=== PATIENT | male | born 1960 | race Caucasian/White ===

== ENCOUNTER 2017-12-25 | Emergency (ER) | payer MEDICAID, OTHER | END 2017-12-25 13:58 | disposition home or self-care (01) | DX: S91.301A Unspecified open wound, right foot, initial encounter (principal) ==

== ENCOUNTER 2018-01-14 16:29 | Inpatient (IN) | payer MEDICAID ==
--- NOTE | 2018-01-14 16:50 | EDPHY ---
H & P Time Seen by Provider: 01/14/18 16:39 HPI/ROS: CHIEF COMPLAINT: Right leg swelling HISTORY OF PRESENT ILLNESS: Patient presents from [facility] for 2 weeks of right leg swelling and a wound on his right foot. He has a history of diabetes and 2 previous toe amputations. Patient has a wound and redness and swelling on his right foot which is severe. It is getting much worse over the past 48 hr. Not associated with trauma but does have fever and chills. It is painful. Symptoms moderate. REVIEW OF SYSTEMS: Eye: no change in vision ENT: no sore throat Cardiac: no chest pain or syncope Pulmonary: no cough or SOB Abdomen: No vomiting or abdominal pain, had diarrhea and Clostridium difficile 3 months ago. Musculoskeletal: Right leg swelling below the knee Skin: Redness and open sores on his right foot Neuro: no headache Constitutional: Fever and chills : no urinary symptoms A comprehensive 10 point review of systems is otherwise negative aside from elements mentioned in the history of present illness. PAST MEDICAL HISTORY: Includes diabetes, hypertension, hypercholesterolemia Admitted at [facility] from November 25 to December 13 of this year for diabetic foot ulcer discharged on doxycycline. Social history: [facility] patient General Appearance: Alert and conversant, cooperative. Eyes: No scleral icterus. ENT, Mouth: Normal mucous membranes. Respiratory: Normal respiratory effort, breath sounds equal, lungs are clear to auscultation. Cardiovascular: Regular rate and rhythm. Gastrointestinal: Abdomen is soft and non tender. Neurological: Alert, face symmetric, fluent speech, follows commands. Skin: Redness on the lateral surface of the right foot and over the 3 remaining toes. He has open wound on the plantar surface as well as 1 on the lateral surface. There is some tissue maceration. Another red patch over the anterior morris. Musculoskeletal: Right lower leg is 3+ pedal edema. Psychiatric: Not agitated. Emergency Department course/MDM: Patient presents with acute soft tissue swelling consistent with diabetic foot ulcer. Discussion with Dr. Shelton from Infectious Disease recommends vancomycin and ceftriaxone, the patient does say he have a penicillin allergy which includes shortness of breath and hives. 1832: Central line placed by myself due to inability to obtain venous access by multiple nurses, please see procedure note for details. Because of this IV fluids and antibiotic infusion were delayed. 1849: Staff able to obtain information from [facility], allergic to Rocephin and penicillin. He was given clindamycin and doxycycline and vancomycin without reaction; Ertapenem per [facility] at this time. 1903: SIRS criteria with elevated heart rate and respiratory rate in the emergency department but normal white blood cell count and negative lactate. Patient did not have evidence of allergic reaction in the emergency department with ertapenem infusing. Smoking Status: Never smoked Constitutional: Initial Vital Signs Temperature (C) 37.2 C 01/14/18 16:42 Heart Rate 113 H 01/14/18 16:42 Respiratory Rate 16 01/14/18 16:42 Blood Pressure 151/79 H 01/14/18 16:42 O2 Sat (%) 97 01/14/18 16:42 O2 Delivery Mode Room Air Allergies/Adverse Reactions: Penicillins Allergy (Severe, Verified 01/14/18 16:40) cant breathe Home Medications: Medication Instructions Recorded Bp Meds 12/25/17 Humalog 01/14/18 Lantus 01/14/18 Medical Decision Making - Diagnostics Imaging Results: Imaging Impressions Foot X-Ray 01/14/18 17:04 Impression: 1. Extensive postsurgical/degenerative changes of the left forefoot, as above. Subcutaneous emphysema over the dorsum of the forefoot is compatible with infection. No areas of bone resorption are identified to suggest active osteomyelitis. 2. Osteosclerosis of the 2nd metatarsal and proximal phalanx of the 2nd toe may be secondary to chronic osteomyelitis or altered biomechanics. Extremity Venous Study 01/14/18 17:09 Impression: No deep venous thrombosis RIGHT leg. Results called to Dr. Randall at 7:50 PM. Imaging: Discussed imaging studies w/ call center trainer Radiologist Procedures: Procedure: Central line placement. Indication: Poor vascular access, diabetic foot infection. Risks, benefits, alternatives discussed with the patient including but not limited to bleeding, infection, vascular injury, and collapsed lung and consent obtained. A timeout was observed. Full maximal sterile barrier technique was used including cap, gown, sterile gloves, large sheet, hand washing and chlorhexidine prep. The area was anesthetized with 1% lidocaine. A 7 Bulgarian triple lumen was placed in the right femoral vein using standard Seldinger technique. There were no complications. Blood return low pressure, dark blood. Patient tolerated procedure well. The procedure was performed by myself. Differential Diagnosis: Differential considered including but not limited to fasciitis, abscess, cellulitis, osteomyelitis. Consult/Admit Bed Type: [facility] 1705 start with Jona Castillo 1856 Critical Care Time: Critical care time spent by me, Dr. Randall, exclusively with the care of this patient was 30 minutes, exclusive of PA or BLUEBERRY GROWER time and exclusive of separate procedures. The organ system at risk was infectious and I ordered multiple diagnostics and IV antibiotics and IV fluids to stabilize the patient and prevent worsening of the patient's condition. - Data Points Laboratory Results: Laboratory Results 01/14/18 18:31 18 18:31 01/14/18 01/14/18 01/14/18 18:45 18:31 18:31 WBC 11.34 10^3/uL H 10^3/uL (3.80-9.50) RBC 3.58 10^6/uL L 10^6/uL (4.40-6.38) Hgb 10.1 g/dL L g/dL (13.7-17.5) Hct 29.8 % L % (40.0-51.0) MCV 83.2 fL fL (81.5-99.8) MCH 28.2 pg pg (27.9-34.1) MCHC 33.9 g/dL g/dL (32.4-36.7) RDW 13.9 % % (11.5-15.2) Plt Count 209 10^3/uL 10^3/uL (150-400) MPV 10.3 fL fL (8.7-11.7) Neut % (Auto) 85.4 % H % (39.3-74.2) Lymph % (Auto) 4.9 % L % (15.0-45.0) [place] % (Auto) 8.9 % % (4.5-13.0) Eos % (Auto) 0.0 % L % (0.6-7.6) Baso % (Auto) 0.1 % L % (0.3-1.7) Nucleat RBC Rel Count 0.0 % % (0.0-0.2) Absolute Neuts (auto) 9.68 10^3/uL H 10^3/uL (1.70-6.50) Absolute Lymphs (auto) 0.56 10^3/uL L 10^3/uL (1.00-3.00) Absolute Monos (auto) 1.01 10^3/uL H 10^3/uL (0.30-0.80) Absolute Eos (auto) 0.00 10^3/uL L 10^3/uL (0.03-0.40) Absolute Basos (auto) 0.01 10^3/uL L 10^3/uL (0.02-0.10) Absolute Nucleated RBC 0.00 10^3/uL 10^3/uL (0-0.01) Immature Gran % 0.7 % % (0.0-1.1) Immature Gran # 0.08 10^3/uL 10^3/uL (0.00-0.10) RBC/WBC/PLT Morphology TNP Platelet Estimate TNP PT 16.0 SEC H SEC (12.0-15.0) INR 1.26 H (0.83-1.16) APTT 34.3 SEC SEC (23.0-38.0) VBG Lactic Acid Sodium Potassium Chloride Carbon Dioxide Anion Gap BUN Creatinine Estimated GFR Glucose Calcium Total Bilirubin Urine Color YELLOW Urine Appearance MODERATELY TURBID Urine pH 5.0 (5.0-7.5) Ur Specific [place] 1.018 (1.002-1.030) Urine Protein 2+ H (NEGATIVE) Urine Ketones TRACE H (NEGATIVE) Urine Blood 3+ H (NEGATIVE) Urine Nitrate NEGATIVE (NEGATIVE) Urine Bilirubin NEGATIVE (NEGATIVE) Urine Urobilinogen NEGATIVE EU EU (0.2-1.0) Ur Leukocyte Esterase NEGATIVE (NEGATIVE) Urine RBC 25-50 /hpf H /hpf (0-3) Urine WBC 5-10 /hpf H /hpf (0-3) Ur Epithelial Cells TRACE /lpf /lpf (NONE-1+) Granular Casts 1-5 /lpf /lpf (0-1) Urine Mucus TRACE /lpf /lpf (NONE-1+) Urine Glucose 3+ H (NEGATIVE) 01/14/18 01/14/18 18:31 18:31 WBC RBC Hgb Hct MCV MCH MCHC RDW Plt Count MPV Neut % (Auto) Lymph % (Auto) [place] % (Auto) Eos % (Auto) Baso % (Auto) Nucleat RBC Rel Count Absolute Neuts (auto) Absolute Lymphs (auto) Absolute Monos (auto) Absolute Eos (auto) Absolute Basos (auto) Absolute Nucleated RBC Immature Gran % Immature Gran # RBC/WBC/PLT Morphology Platelet Estimate PT INR APTT VBG Lactic Acid 1.1 mmol/L mmol/L (0.7-2.1) Sodium 131 mEq/L L mEq/L (135-145) Potassium 4.3 mEq/L mEq/L (3.3-5.0) Chloride 97 mEq/L mEq/L (97-110) Carbon Dioxide 24 mEq/l mEq/l (22-31) Anion Gap 10 mEq/L mEq/L (8-16) BUN 21 mg/dL mg/dL (7-23) Creatinine 1.2 mg/dL mg/dL (0.7-1.3) Estimated GFR > 60 Glucose 277 mg/dL H mg/dL (70-100) Calcium 8.4 mg/dL L mg/dL (8.5-10.4) Total Bilirubin 0.4 mg/dL mg/dL (0.1-1.4) Urine Color Urine Appearance Urine pH Ur Specific [place] Urine Protein Urine Ketones Urine Blood Urine Nitrate Urine Bilirubin Urine Urobilinogen Ur Leukocyte Esterase Urine RBC Urine WBC Ur Epithelial Cells Granular Casts Urine Mucus Urine Glucose Microbiology Results: MICROBIOLOGY 01/14/18 17:00 Foot - Swab Gram Stain - Final Medications Given: Discontinued Medications Sodium Chloride (Ns) 2,900 mls @ 5,800 mls/hr 30 ml/kg infuse over 30 min ( 2900 ml) IV EDNOW ONE PRN Reason: Protocol Stop: 01/14/18 17:32 Last Admin: 01/14/18 18:52 Dose: 2,900 mls Vancomycin/Sodium Chloride (Vancomycin 1 Gm (Premix)) 250 mls @ 250 mls/hr IV EDNOW ONE PRN Reason: Protocol Stop: 01/14/18 19:32 Last Admin: 01/14/18 18:52 Dose: 250 mls Ertapenem 1 gm/ Sodium (Chloride) 100 mls @ 200 mls/hr IV EDNOW ONE PRN Reason: Protocol Stop: 01/14/18 19:32 Last Admin: 01/14/18 19:36 Dose: 100 mls Departure - Departure Disposition: [facility] Inpatient Acute Clinical Impression: Diabetic infection of right foot Condition: Serious
[2018-01-14] MEDS ORDERED: NS 2,900 ML IV ONE (17:03)
[2018-01-14] MEDS ORDERED: VANCOMYCIN HCL/NORMAL SALINE 250 ML IV ONE (18:33)
[2018-01-14 19:02] LABS: PLATELET COUNT 209 10^3/uL (150-400)
[2018-01-14] MEDS ORDERED: ERTAPENEM 1 GM in NS 100 ML IV ONE (19:03)
[2018-01-14 19:11] LABS: INR 1.26 (0.83-1.16)
[2018-01-14] MEDS: ACETAMINOPHEN 325 MG TAB PO PRN (20:55)
[2018-01-14] MEDS ORDERED: ONDANSETRON DISINTEGRATING 4 MG TAB PO PRN (22:16)
[2018-01-14] MEDS ORDERED: ONDANSETRON 4 MG/2 ML VIAL IVP PRN (22:16)
[2018-01-14] MEDS ORDERED: ALTEPLASE 2 MG VIAL IVP PRN (22:20)
[2018-01-14] MEDS ORDERED: D50W 25 GM/50 ML SYR IVP PRN (22:22)
[2018-01-14] MEDS ORDERED: D50W 25 GM/50 ML VIAL IVP PRN (22:30)
[2018-01-14] MEDS: NS 1,000 ML IV SCH (23:13)
[2018-01-14] MEDS: INSULIN GLARGINE 100 UNITS/ML UNIT SC SCH (23:13)
--- NOTE | 2018-01-15 01:50 | PDGENHP ---
History and Physical - Chief Complaint Foot pain, redness - History of Present Illness 57 yo M w/ hx of IDDM presents with evidence of R foot infection. Patient has been dealing with an ulceration on the plantar aspect of his R foot for several months. He tells me he stepped on some rocks initially and this has not healed. He was admitted at [facility] for management of this in November and December and has had at least 1 I&D. He follows at [facility] and receives regular wound care. Today he developed increased pain and redness in his foot. In addition, redness and swelling have progressed up his leg, which is new. In the ED he triggered sepsis pathway so he received fluid bolus and antibiotics. At the time of my evaluation patient is comfortable and without complaint. Case discussed with Dr. Tenorio, records reviewed in EMR. History Information - Allergies/Home Medication List Allergies/Adverse Reactions: Penicillins Allergy (Severe, Verified 01/14/18 16:40) cant breathe Home Medications: Bp Meds 12/25/17 [Last Taken Unknown] Aspirin [Aspirin 81mg (*)] 81 mg PO DAILY 01/14/18 [Last Taken 01/14/18] Humalog 01/14/18 [Last Taken Unknown] Insulin Glargine [Lantus 100 UNITS/ML (*)] 10 units SC HS 01/14/18 [Last Taken 01/13/18] I have personally reviewed and updated: family history, medical history - Past Medical History diabetes type 2 - Surgical History Additional surgical history: R toe amputations x2 - Family History Additional family history: Asked, denies - Social History Smoking Status: Never smoked Review of Systems Review of Systems: ROS: 10pt was reviewed & negative except for what was stated in HPI & below Physical Exam Physical Exam: Temp Pulse Resp BP Pulse Ox 38.2 C 117 H 18 133/66 H 92 01/14/18 21:42 01/14/18 21:42 01/14/18 21:42 01/14/18 21:42 01/14/18 21:42 Constitutional: no apparent distress, not in pain Eyes: PERRL, EOMI Ears, Nose, Mouth, Throat: moist mucous membranes, no oral mucosal ulcers Cardiovascular: systolic murmur, tachycardia Respiratory: no respiratory distress, clear to auscultation Gastrointestinal: normoactive bowel sounds, no palpable masses Skin: warm, other (Ulcer plantar aspect of R foot, redness around ulcer and extending up R lower leg) Musculoskeletal: full muscle strength, muscular tenderness Neurologic: AAOx3, CN II-XII Intact Psychiatric: interacting appropriately, not anxious Lab Data & Imaging Review 01/14/18 18:31 01/14/18 18: WBC 11.34 10^3/uL (3.80-9.50) H 01/14/18 18: RBC 3.58 10^6/uL (4.40-6.38) L 01/14/18 18: Hgb 10.1 g/dL (13.7-17.5) L 01/14/18 18: Hct 29.8 % (40.0-51.0) L 01/14/18 18: MCV 83.2 fL (81.5-99.8) 01/14/18 18: MCH 28.2 pg (27.9-34.1) 01/14/18 18: MCHC 33.9 g/dL (32.4-36.7) 01/14/18 18: RDW 13.9 % (11.5-15.2) 01/14/18 18: Plt Count 209 10^3/uL (150-400) 01/14/18 18: MPV 10.3 fL (8.7-11.7) 01/14/18 18: Neut % (Auto) 85.4 % (39.3-74.2) H 01/14/18 18: Lymph % (Auto) 4.9 % (15.0-45.0) L 01/14/18 18: [place] % (Auto) 8.9 % (4.5-13.0) 01/14/18 18: Eos % (Auto) 0.0 % (0.6-7.6) L 01/14/18 18: Baso % (Auto) 0.1 % (0.3-1.7) L 01/14/18 18: Nucleat RBC Rel Count 0.0 % (0.0-0.2) 01/14/18 18: Absolute Neuts (auto) 9.68 10^3/uL (1.70-6.50) H 01/14/18 18:31 Absolute Lymphs (auto) 0.56 10^3/uL (1.00-3.00) L 01/14/18 18:31 Absolute Monos (auto) 1.01 10^3/uL (0.30-0.80) H 01/14/18 18:31 Absolute Eos (auto) 0.00 10^3/uL (0.03-0.40) L 01/14/18 18:31 Absolute Basos (auto) 0.01 10^3/uL (0.02-0.10) L 01/14/18 18:31 Absolute Nucleated RBC 0.00 10^3/uL (0-0.01) 01/14/18 18:31 Immature Gran % 0.7 % (0.0-1.1) 01/14/18 18:31 Immature Gran # 0.08 10^3/uL (0.00-0.10) 01/14/18 18:31 RBC/WBC/PLT Morphology TNP 01/14/18 18:31 Platelet Estimate TNP 01/14/18 18:31 PT 16.0 SEC (12.0-15.0) H 01/14/18 18:31 INR 1.26 (0.83-1.16) H 01/14/18 18:31 APTT 34.3 SEC (23.0-38.0) 01/14/18 18:31 VBG Lactic Acid 1.1 mmol/L (0.7-2.1) 01/14/18 18:31 Sodium 131 mEq/L (135-145) L 01/14/18 18:31 Potassium 4.3 mEq/L (3.3-5.0) 01/14/18 18:31 Chloride 97 mEq/L (97-110) 01/14/18 18:31 Carbon Dioxide 24 mEq/l (22-31) 01/14/18 18:31 Anion Gap 10 mEq/L (8-16) 01/14/18 18:31 BUN 21 mg/dL (7-23) 01/14/18 18:31 Creatinine 1.2 mg/dL (0.7-1.3) 01/14/18 18:31 Estimated GFR > 60 01/14/18 18:31 Glucose 277 mg/dL (70-100) H 01/14/18 18:31 POC Glucose 213 mg/dL (70-100) H 01/14/18 22:02 Calcium 8.4 mg/dL (8.5-10.4) L 01/14/18 18:31 Total Bilirubin 0.4 mg/dL (0.1-1.4) 01/14/18 18:31 Urine Color YELLOW 01/14/18 18:45 Urine Appearance MODERATELY TURBID 01/14/18 18:45 Urine pH 5.0 (5.0-7.5) 01/14/18 18:45 Ur Specific [place] 1.018 (1.002-1.030) 01/14/18 18:45 Urine Protein 2+ (NEGATIVE) H 01/14/18 18:45 Urine Ketones TRACE (NEGATIVE) H 01/14/18 18:45 Urine Blood 3+ (NEGATIVE) H 01/14/18 18:45 Urine Nitrate NEGATIVE (NEGATIVE) 01/14/18 18:45 Urine Bilirubin NEGATIVE (NEGATIVE) 01/14/18 18:45 Urine Urobilinogen NEGATIVE EU (0.2-1.0) 01/14/18 18:45 Ur Leukocyte Esterase NEGATIVE (NEGATIVE) 01/14/18 18:45 Urine RBC 25-50 /hpf (0-3) H 01/14/18 18:45 Urine WBC 5-10 /hpf (0-3) H 01/14/18 18:45 Ur Epithelial Cells TRACE /lpf (NONE-1+) 01/14/18 18:45 Granular Casts 1-5 /lpf (0-1) 01/14/18 18:45 Urine Mucus TRACE /lpf (NONE-1+) 01/14/18 18:45 Urine Glucose 3+ (NEGATIVE) H 01/14/18 18:45 Imaging Review: Imaging Impressions Foot X-Ray 01/14/18 17:04 Impression: 1. Extensive postsurgical/degenerative changes of the left forefoot, as above. Subcutaneous emphysema over the dorsum of the forefoot is compatible with infection. No areas of bone resorption are identified to suggest active osteomyelitis. 2. Osteosclerosis of the 2nd metatarsal and proximal phalanx of the 2nd toe may be secondary to chronic osteomyelitis or altered biomechanics. Extremity Venous Study 01/14/18 17:09 Impression: No deep venous thrombosis RIGHT leg. Results called to Dr. Randall at 7:50 PM. Assessment & Plan Assessment: 57 yo M w/ hx of DM presents with diabetic R foot infection. Plan: 1. Sepsis 2/2 diabetic R foot infection - 2/4 SIRS criteria (HR, T) present on admission. Ulcer on plantar aspect of R foot has been present for several weeks , now with evidence of worsening infection. - Vancomycin and Ertapenem per ID (CTX and penicillin allergy) - S/p fluid bolus in ED, continue mIVF overnight - Blood and tissue culture pending - ID consulted, appreciate assistance - Wound care consult placed - NPO @ [place] in case he requires I&D 2. IDDM - Manages BG at home with insulin glaring 10 u qHS + humalog sliding scale. He tells me last A1c was 8.5. - Continue insulin glargine 10 u qHS + insulin lispro standard SSI - BG checks ACHS, D50 PRN for hypoglycemia 3. Normocytic anemia - No evidence of acute bleeding, no prior values available for comparison. - Will check ferritin, B12 with AM labs 4. Hyponatremia - Mild, I suspect this is related to sepsis physiology. - S/p fluid bolus - Recheck BMP in AM Diet - NPO @ MN in case he requires I&D Code - Full Ppx - SCDs Dispo - Admit under inpatient status
[2018-01-15 05:48] LABS: PLATELET COUNT 206 10^3/uL (150-400)
[2018-01-15] MEDS ORDERED: VANCOMYCIN 1.25 GM in NS 250 ML IV SCH (07:00)
[2018-01-15] MEDS: INSULIN LISPRO 100 UNIT/ML SC SCH ×3 (08:44→18:30)
--- NOTE | 2018-01-15 08:51 | HOSPPROG ---
Hospitalist Progress Note Assessment/Plan: Peri Londono is a 57 y/o male w diabetes who presented to the ER with a foot infection. Reviewed his care w Dr Shelton. *diabetic foot infection (has chronic right foot ulcer) -ulcer on the plantar aspect of r foot, has been there for several weeks but has worsened -ultrasound shows no DVT -imaging shows subcutaneous emphysema over the dorsum of the forefoot-infection , no active osteo noted, has osteosclerosis of the 2nd metatarsal and proximal phalanx of the 2nd toe may be secondary to chronic osteomyelitis or altered biomechanics. -Vanco and Ertapenem (has a pcn allergy) -blood cx pending -Dr Jacinto to see tomorrow for poss debridement *proteinuria, pyruia, hematuria -needs further evaluation *anemia -has had multiple hospital stays, will follow *recent hx of c difficile -oral vancomycin initiated due to being on antibiotics (suppressive therapy) *IDDM -sliding scale and home regimen *hypocalcemia -check ionized ca *anemia -B12 elevated *homelessness -gets food stamps. *DVT prophylaxis: will initiate LMWH due to low mobility after he is seen by surgery Subjective: Peri has no specific complaints, wants to eat. Objective: Vital Signs Temp Pulse Resp BP Pulse Ox 37.4 C 100 16 123/70 H 88 L 01/15/18 07:50 01/15/18 07:50 01/15/18 07:50 01/15/18 07:50 01/15/18 07:50 Laboratory Results 01/15/18 04:50 01/15/18 04:50 01/14/18 01/15/18 01/16/18 05:59 05:59 05:59 Intake Total 3062 Output Total 850 Balance 2212 PT 16.0 SEC (12.0-15.0) H 01/14/18 18:31 INR 1.26 (0.83-1.16) H 01/14/18 18:31 - Physical Exam Constitutional: appears nourished, not in pain, chronically ill appearing, unkempt Eyes: PERRL Ears, Nose, Mouth, Throat: hearing normal Cardiovascular: regular rate and rhythym Respiratory: no respiratory distress Gastrointestinal: normoactive bowel sounds Skin: other (right lower ext edema of right morris and right foot, two toes have been amputated. Bottom of right foot with an ulcer, dark around the edges. No pain w palp, Has 1 + pulse.) Musculoskeletal: generalized weakness Neurologic: AAOx3 Psychiatric: interacting appropriately ICD10 Worksheet Patient Problems: Problems Problem Status Onset Diabetic infection of right foot Acute
[2018-01-15] MEDS ORDERED: ERTAPENEM 1 GM in NS 100 ML IV SCH (09:00)
[2018-01-15] MEDS ORDERED: VANCOMYCIN 125 MG/2.5 ML UDL PO SCH ×2 (09:00→16:00)
--- NOTE | 2018-01-15 10:29 | PDMN ---
Medical Necessity Medical necessity: [facility] [place] M160 Sepsis: 57/y/o w/ Sepsis 2/2 diabetic R foot infection - 2/4 SIRS criteria (tachycardic 110s, temp 39.6) present on admission. Elevated WBC, anemic 8.1/24.3, BC pending, Ulcer on plantar aspect of R foot has been present for several weeks admitted outside hospitals x2 last two months, one I&D procedure, now with evidence of worsening infection. PICC line ordered, IV fluids started, IV Vancomycin and Ertapenem per ID consult, Wound care consult pending, NPO @ [place] in case he requires I&D
[2018-01-15] MEDS: NS 1,000 ML IV SCH (12:17)
[2018-01-15] MEDS ORDERED: GADOBUTROL 10 ML VIAL IVP ONE (14:27)
[2018-01-15] MEDS ORDERED: VANCOMYCIN HCL/NORMAL SALINE 250 ML IV SCH (15:00)
--- NOTE | 2018-01-15 15:34 | GCON ---
INFECTIOUS DISEASE CONSULTATION DATE OF CONSULTATION: 01/15/2018 REFERRING PHYSICIAN: Bebeto Doll MD REASON FOR CONSULTATION: Fever and diabetic foot ulcer on the right. HISTORY OF PRESENT ILLNESS: This is a 57-year-old male who has underlying hypertension, diabetes, who has longstanding chronic right diabetic foot ulcer, managed primarily in [place] at [facility]. Patient spent a week and a half hospitalized in November. Leading up to this hospitalization, patient was on oral clindamycin and subsequently developed diarrhea and C diff, which was diagnosed 12/01/2017. In addition, during the hospitalization, patient received antibiotic therapy and was discharged on oral doxycycline. No microbiology was available when I reviewed outside records. Patient presents to the emergency room with complaints of right leg swelling and is also noted to be febrile; therefore, was admitted to the hospital for further management. Patient says that his foot is slightly more swollen than baseline but says that the size of the wound is stable. With a pointed review of systems, patient was a difficult historian and had a negative review of systems. In the emergency room, T-max was 39.9. He had a leukocytosis of 13.9 and was given a dose of IV vancomycin and ertapenem. ID is recommended for management of foot ulcer and evaluation of fever. PAST MEDICAL HISTORY: Hypertension, diabetes, chronic right diabetic foot ulcer with prior toe amputations, C diff on 12/01/2017. FAMILY HISTORY: Negative for diabetes. SOCIAL HISTORY: Denies smoking. He is homeless. He has food stamps. He has had negative drug screens, last 11/15/2017. ALLERGIES: 1. Penicillin. He states he has anaphylaxis. 2. Cephalosporin he cannot remember and he is vague about the reaction. MEDICATIONS: The patient got ertapenem 1 g IV daily and vancomycin 1 dose of 1 g, followed by a dose this morning of 1.25 at 6:30 a.m. He is also on insulin. No anticoagulants or steroids. PHYSICAL EXAM: VITAL SIGNS: T-max 39.6, T-current 37.7, blood pressure 125/64 , heart rate 181, respiratory rate 16, saturation is 92 on room air. GENERAL: This is a somewhat disheveled male, sitting in bed, in no acute distress. HEENT : A handful of teeth left. Moist mucous membranes. NECK: Supple. CARDIOVASCULAR: Regular rate. No murmurs. CHEST: Clear to auscultation bilaterally. ABDOMEN: Soft, nontender. No pain with palpation. No peritoneal signs. EXTREMITIES: In bilateral lower extremities, he had 2+ pulses. In his right lower extremity, he had woody edema of his right morris and foot. His right foot showed 3 toes and a silver dollar sized ulcer with necrotic material at the base. No palpable bone. He had no tenderness and no crepitus. He was able to move his ankle fully. NEURO: Deferred. SKIN: No rashes. IMAGING: Plain film was personally reviewed by me from 01/14/2018, which showed some air in the dorsum of the soft tissues. He has extensive postsurgical and degenerative changes of the forefoot, but no areas of bone resorption are identified to suggest active osteomyelitis. Also, I have the report of an MRI performed 11/26/2017, that showed bone marrow enhancement of the navicular and clavicular bone and the 3rd metatarsal shaft that they described as stable features without progression of osteomyelitis. He also had severe narrowed metatarsophalangeal joints with cortical irregularities that they described as consistent with degenerative or neuropathic arthropathy. There was no abscess. ASSESSMENT: This is a 57-year-old male with longstanding diabetes and problems with his right foot, who has a chronic diabetic foot ulcer, who presents to the emergency room with right foot swelling and fever. 1. Chronic diabetic foot ulcer. 2. Fever. 3. History of Clostridium difficile. PLAN: 1. Discontinue ertapenem and continue monotherapy with vancomycin. Despite only chronic changes of his right lower extremity, I elected to continue gram- positive coverage in light of fever at time of admission. Certainly, this chronic ulcer is a portal of entry for bacteremia. 2. Follow blood cultures. 3. Empiric vancomycin; therefore, goal dose 10-15. Patient has no known renal impairment, though, currently, in records, it does note that he has had acute renal failure in the past. 4. Would start suppressive p.o. vancomycin 125 b.i.d. while on IV antibiotics. Would not retest C diff. If diarrhea returns, would just retreat. 5. Surgery was personally consulted by me. Patient was allowed to eat, and Surgery will evaluate tomorrow. 6. Would repeat MRI due to plain film findings of air in the soft tissues. Thank you for this consultation. We will continue to see him on a daily basis. Time was 75 minutes, greater than 50% of time spent with education and counseling of the patient, coordination of care, as well as review of outside records. /[id number]/MODL MTDD
--- NOTE | 2018-01-15 15:37 | ASMTCMCOM ---
CM Note CM Note Notes: Met with pt, he is admitted for R foot infection. He states he stays at [facility] respite [phone]. Pt asked CM to call and let them know that was in the hospital, no answer, left vm. DC needs unclear, PT to eval and ID to consult. DC Plan: TBD Date Signed: 01/15/2018 03:36 PM Electronically Signed By:Jelly Hernandez RN
[2018-01-15] MEDS: VANCOMYCIN HCL/NORMAL SALINE 250 ML IV SCH (18:30)
[2018-01-15] MEDS: ACETAMINOPHEN 325 MG TAB PO PRN (19:28)
[2018-01-15] MEDS: VANCOMYCIN 125 MG/2.5 ML UDL PO SCH (20:08)
[2018-01-15] MEDS: INSULIN GLARGINE 100 UNITS/ML UNIT SC SCH (21:19)
[2018-01-16] MEDS: NS 1,000 ML IV SCH ×2 (05:16→18:15)
[2018-01-16] MEDS: VANCOMYCIN HCL/NORMAL SALINE 250 ML IV SCH ×2 (06:04→18:15)
[2018-01-16] MEDS: INSULIN LISPRO 100 UNIT/ML SC SCH ×3 (08:22→18:10)
[2018-01-16] MEDS: VANCOMYCIN 125 MG/2.5 ML UDL PO SCH ×2 (08:34→21:16)
--- NOTE | 2018-01-16 09:21 | GCON ---
CHIEF COMPLAINT: Right foot osteomyelitis. HISTORY OF PRESENT ILLNESS: This 57-year-old male with diabetes, presents with a right foot infection. He says he has been dealing with ulcerations and wound drainage for at least a month. Had been going to Wound Care and had been admitted for this before at [facility]. He had an I and D. He has had other amputations in this foot, including amputations of the 5th and 4th toes and rays. Says he has been able to bear a little bit of weight on it, but this can be painful and he has been trying to stay off it as best he can. PAST MEDICAL HISTORY: Diabetes type 2. PAST SURGICAL HISTORY: He had 2 different amputations on his right foot, including the 4th and 5th rays and toes. ALLERGIES: Penicillin. HOME MEDICATIONS: Aspirin, Humalog insulin, Lantus. SOCIAL HISTORY: Has never smoked. PAST FAMILY HISTORY: Reviewed, noncontributory. REVIEW OF SYSTEMS: A 10-point review of systems negative, other than above. PHYSICAL EXAMINATION: GENERAL: He is alert and oriented. He is appropriate. He is tachycardic. Right now he is in no acute distress. He is pleasant. HEENT: His eyes are equal and reactive. His mouth shows moist mucous membranes. CARDIOVASCULAR: Tachycardic pulses. RESPIRATORY: Shows good inspiratory effort. ABDOMEN: Soft. EXTREMITIES: Skin appears intact in his other extremities and his left foot. On his right foot he has a large plantar ulcer. He has a draining wound out of the PIP joint of his 3rd toe. He also has a plantar wound at the MTP, which is draining. He has lost his 4th and 5th toes. His 1st toe is in hallux varus, and a 2nd hammertoe. The toes are dorsally contracted, did not hit the ground. He has Achilles contracture as well. He does have some sensation in this foot, is tender to palpation. He can actively dorsiflex and plantar flex the ankle. On the left foot, he has really no areas of ulceration. He has 5 toes remaining. He has good motion of his toes and ankle. He has 5/5 strength. His upper extremities are intact, without abnormality. LABORATORY DATA: He did have positive cultures from a swab. He has extensive changes on x-ray, including osteoarthritis. He has a hallux varus of the great toe, and arthritis. He has a hammering 2nd toe, and 3rd he has obliteration of the 3rd MTP, consistent with osteomyelitis. On his MRI, he has signal increase in the 3rd toe and in the 3rd metatarsal shaft, consistent with osteomyelitis. ASSESSMENT: Right diabetic foot infection, left 3rd toe, and 3rd ray osteomyelitis. PLAN: I discussed his options with him. I think he will likely need surgery for this problem as he has tried wound care and antibiotics, and this appears to be getting worse. His osteomyelitis extends to his midfoot, in the metatarsals. I recommended a right transmetatarsal amputation. I think his remaining toes are dysfunctional, and not serving him well. At any rate, this would give him a more functional foot, and allow for closure, and getting rid of his wounds, including his ulcer. The plantar ulcer does track a bit proximally, and there may need to be some rotational coverage involved with closing this, but I think it could be closed. He would like to think about his options. Dr. Adenike Jacinto has also offered him same amputation, and he may elect to have the transmetatarsal amputation with her as well. /[id number]/MODL MTDD
[2018-01-16] MEDS ORDERED: BUPIVACAINE 0.5% 30 ML SDV ONE (10:48)
[2018-01-16] MEDS ORDERED: PROPOFOL 200 MG/20 ML VIAL ONE (10:53)
[2018-01-16] MEDS ORDERED: PROPOFOL/EMULSION 500 MG/50 ML BOTTLE IV ONE (10:53)
[2018-01-16] MEDS ORDERED: fentaNYL 100 MCG/2 ML INJ ONE (10:53)
--- NOTE | 2018-01-16 11:22 | GCON ---
DATE OF CONSULTATION: 01/16/2018 REQUESTING PHYSICIAN: Chelsea Shelton MD REASON FOR CONSULTATION: Wounds on right foot. HISTORY OF PRESENT ILLNESS: Peri Londono is a 57-year-old man who has past medical history significa nt for insulin-dependent diabetes mellitus. He has had a wound on the plantar aspect of his right fo ot for several months. He has been followed in [place] for this. He was admitted to [facility] due to increased pain and redness in his foot, with ascending cellulitis, which is new. He had a lower extremity MRI on January 15, 2018, which showed likely osteomyelitis in the entire shaft of t he 3rd metatarsal and proximal and middle phalanges of the 3rd toe. There was also a small subcutane ous abscess with internal gas bubbles along the dorsal aspect of the foot near the 3rd metatarsal. H is wound culture showed MRSA, strep pyogenes group A, and Alcaligenes faecalis. PAST MEDICAL HISTORY: Includes insulin-dependent diabetes, hypertension. PAST SURGICAL HISTORY: Includes toe amputations on the right foot. FAMILY HISTORY: He denies any family medical history. SOCIAL HISTORY: Reports he has never smoked. He denies fevers or chills. He is very hungry. ALLERGIES: Include penicillin. PHYSICAL EXAMINATION: VITAL SIGNS: 37.2, 85, 124/64, 16, 97% on room air. GENERAL: Pleasant, slig htly disheveled, sitting up in bed. HEENT: Normocephalic. Poor dentition. Pupils equal and round. No gross hearing deficits. LUNGS: Clear to auscultation bilaterally. No increased work of breath ing. CARDIAC: Regular rate. He does have right leg edema. SKIN: On his right foot he has a wound on the plantar surface, at least 3 cm, and he also has a wound over his 3rd toe, in which bone is pa lpable. Erythema more prominent on the right as compared to the left. MUSCULOSKELETAL: Multiple am putations on the right foot. PSYCHIATRIC: Normal mood. Affect a bit strange, as he wanted to flip a coin for which surgeon he would select. LABORATORY DATA: I personally reviewed his laboratory work, revealing an elevated white blood cell c ount of 13.95 today, hemoglobin 8.1, and hematocrit 24.3. His platelets are normal at 206. His INR is only slightly elevated at 1.26. I also reviewed the results of his MRI. IMPRESSION AND PLAN: Peri Londono is a 57-year-old with osteomyelitis of the 3rd metatarsal, with a plantar surface wound, as well as a wound on the toe. I have recommended a transmetatarsal amputatio n for him. I do not think that doing an isolated metatarsal would benefit him as he has other wounds , and this could even create some issues with more foot instability. Will also release part of his A chilles. Risks and benefits, including, but not limited to stroke, heart attack, , blood clots, poor wound healing, delayed wound closure, need for additional procedures were all discussed. He irvin d his questions answered to his satisfaction. He had a second opinion with Dr. Krishnan. He will proc eed to the operating room. /[id number]/MODL
[2018-01-16] MEDS ORDERED: PHENYLEPHRINE HCL 100 MCG/ML SYR ONE (11:43)
--- NOTE | 2018-01-16 12:36 | POSTOPPROG ---
Post Op Note Date of Operation: 01/16/18 Surgeon: Adenike Jacinto Anesthesiologist: mack Anesthesia: GET(General Endotracheal) Pre-op Diagnosis: osteomylitis 3rd metatarsal chronic dfu Post-op Diagnosis: same Indication: 57 yo with dfu and osteo Procedure: R tma and achilles release Findings: fused bone Inf/Abcess present in the surg proc area at time of surgery?: Yes Depth: Deep Incisional (Fascial) EBL: 50-100 Drains: Wound Vac Specimen(s): salvatore and vibha
[2018-01-16] MEDS ORDERED: HYDROCODONE/APAP 5/325 TAB PO PRN (12:46)
[2018-01-16] MEDS ORDERED: LR 500 ML IV PRN (12:46)
[2018-01-16] MEDS ORDERED: NALOXONE HCL 0.4 MG/ML INJ IVP PRN (12:46)
[2018-01-16] MEDS ORDERED: ONDANSETRON 4 MG/2 ML VIAL IVP PRN (12:46)
--- NOTE | 2018-01-16 12:47 | POSTANESTH ---
Post Anesthetic Evaluation Cardiovascular Status: Similar to Pre-Op Cond Respiratory Status: Similar to Pre-op Cond. Level of Consciousness/Mental Status: Alert and Oriented Pain Control: Adequate, Prn Tx Ordered Nausea/Vomiting Control: Adequate, Prn Tx Ordered Complications Possibly Related to Anesthesia: None Noted
--- NOTE | 2018-01-16 12:52 | GOP ---
DATE OF OPERATION: 01/16/2018 SURGEON: Adenike Jacinto MD ANESTHESIA: General and popliteal block. ANESTHESIOLOGIST: Jorge Guaman MD. PREOPERATIVE DIAGNOSIS: Right foot chronic diabetic foot ulcers and osteomyelitis, 3rd metatarsal. POSTOPERATIVE DIAGNOSIS: Right foot chronic diabetic foot ulcers and osteomyelitis, 3rd metatarsal. PROCEDURE PERFORMED: Right foot transmetatarsal amputation with Achilles tendon release. FINDINGS: Fused bone. SPECIMENS: Right forefoot, right metatarsal for microbiology and proximal margin for Pathology. ESTIMATED BLOOD LOSS: 50 cc. INDICATIONS: The patient is a 57-year-old man with a past medical history known for treatment of diabetic foot ulcers. He presented with extreme cellulitis and had MRI findings consistent with osteomyelitis and abscess. He also had palpable bone on his 3rd toe. DESCRIPTION OF PROCEDURE: The patient was brought into the operating room, placed supine on the table and general anesthesia was administered. His foot was prepped and draped in the usual sterile fashion. I made an incision across his forefoot and continued it across on the plantar aspect of the foot, saving as much skin as possible. I placed the tourniquet up. I dissected down through the skin and subcutaneous tissues until I encountered bone. I used the periosteal elevator to elevate the skin and soft tissues away from the bone. I then used a saw to transect the bone at the midfoot. The bone was extremely fused. It was difficult to evaluate the definition of the individual metatarsals. The foot was submitted to Pathology. I took another piece of bone and submitted this for microbiology and a final proximal margin inked for pathology. The tourniquet was released. Hemostasis was achieved. Jacque was placed in the wound bed. I closed the deep layer with 2-0 Vicryl. I closed the skin with 2-0 nylon and 3-0 nylon. I trimmed excess skin were needed. Next I put his foot in a flex position and using an 11 blade, performed achilles release in 3 areas each about 2 cm apart. I then applied a Prevena incisional wound VAC. He was placed in a walking boot. He was awakened in the operating room, extubated, transferred to PACU in stable condition. /[id number]/MODL MTDD
--- NOTE | 2018-01-16 14:33 | PCMIDPN ---
Assessment/Plan: Assessment/Plan: * Right-sided diabetic foot infection with osteomyelitis of 3rd metatarsal status post transmetatarsal amputation: Operative findings reviewed with Dr. Jacinto which do not show evidence of intraoperative abscess. Hope osteomyelitis has been fully excised which will allow for short course of antibiotics post amputation. Continue vancomycin based on isolation of MRSA with vancomycin also providing activity against Streptococcus. Will not provide targeted activity against Alcaligenes given post amputation in unclear contributing. Assess vancomycin trough this afternoon. CBC and CMP to be performed in a.m.. * History of C difficile colitis 3 weeks ago: Continue suppressive oral vancomycin twice daily while on antibiotic therapy. IV vancomycin should have relatively limited pressure on anaerobic intestinal rose. 01/16/18 14:30 01/16/18 14:32 01/16/18 14:32 Subjective: Patient status post TMA earlier today. No specific complaints. No recurrent diarrhea. Objective: Vital Signs Temp Pulse Resp BP Pulse Ox 36.8 C 66 16 123/73 H 100 01/16/18 13:32 01/16/18 13:32 01/16/18 13:32 01/16/18 13:32 01/16/18 13:32 Laboratory Results 01/15/18 04:50 01/15/18 04:50 01/15/18 01/16/18 01/17/18 05:59 05:59 05:59 Intake Total 3062 3263 900 Output Total 850 950 10 Balance 2212 2313 890 Vancomycin # 2 Blood cultures x2 no growth Foot cultures with growth of MRSA, group A Streptococcus, and Alcaligenes Operative cultures pending - Physical Exam General Appearance: alert, no apparent distress EENT: No scleral icterus, No thrush, No conjunctival petechiae Respiratory: lungs clear, No respiratory distress Cardiac/Chest: regular rate, rhythm Extremities: other (Foot dressed postoperatively) Abdomen: non-tender, No distended Skin: No embolic lesions ICD10 Worksheet Patient Problems: Problems Problem Status Onset Diabetic infection of right foot Acute
--- NOTE | 2018-01-16 15:05 | HOSPPROG ---
Hospitalist Progress Note Assessment/Plan: Peri Londono is a 57 y/o male w diabetes who presented to the ER with a foot infection. 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 -+ MRSA -status post transmetatarsal amputation and tendon release -ulcer on the plantar aspect of r foot, has been there for several weeks but has worsened -ultrasound shows no DVT -Vancomycin *proteinuria, pyruia, hematuria -needs further evaluation *anemia -has had multiple hospital stays, will follow -B12 elevated *recent hx of c difficile -oral vancomycin initiated due to being on antibiotics (suppressive therapy) *IDDM -sliding scale and home regimen *hypocalcemia -ionized ca 1.09 -recheck and place on protocol *homelessness -gets food stamps. *DVT prophylaxis: will initiate LMWH tomorrow Subjective: Peri is feeling fine (just back from surgery) Objective: Vital Signs Temp Pulse Resp BP Pulse Ox 36.8 C 78 16 132/72 H 96 01/16/18 14:32 01/16/18 14:32 01/16/18 14:32 01/16/18 14:32 01/16/18 14:32 Laboratory Results 01/15/18 04:50 01/15/18 04:50 01/15/18 01/16/18 01/17/18 05:59 05:59 05:59 Intake Total 3062 3263 900 Output Total 850 950 10 Balance 2212 2313 890 PT 16.0 SEC (12.0-15.0) H 01/14/18 18:31 INR 1.26 (0.83-1.16) H 01/14/18 18:31 - Physical Exam Constitutional: chronically ill appearing Ears, Nose, Mouth, Throat: hearing normal Cardiovascular: regular rate and rhythym Respiratory: no respiratory distress Skin: warm Neurologic: AAOx3 Psychiatric: interacting appropriately ICD10 Worksheet Patient Problems: Problems Problem Status Onset Diabetic infection of right foot Acute
[2018-01-16] MEDS: INSULIN GLARGINE 100 UNITS/ML UNIT SC SCH (21:16)
[2018-01-17] MEDS: VANCOMYCIN HCL/NORMAL SALINE 250 ML IV SCH ×2 (05:55→18:02)
[2018-01-17] MEDS: NS 1,000 ML IV SCH ×2 (05:55→18:04)
[2018-01-17 06:33] LABS: PLATELET COUNT 244 10^3/uL (150-400)
[2018-01-17] MEDS: VANCOMYCIN 125 MG/2.5 ML UDL PO SCH ×2 (08:24→21:49)
[2018-01-17] MEDS: INSULIN LISPRO 100 UNIT/ML SC SCH ×3 (08:24→18:02)
[2018-01-17] MEDS: ENOXAPARIN 40 MG/0.4 ML SYR SC SCH (08:25)
--- NOTE | 2018-01-17 10:08 | PCMIDPN ---
Assessment/Plan: Assessment: Right sided diabetic foot infection. MRSA, group a strep as well as Alcaligenes in the tissue culture. Still waiting for path results to demineralized to see if there is residual osteomyelitis at the operative site. In the meantime I am content with leaving the vancomycin dose at its present level. Trough from yesterday evening was 10.9. May need to increase vancomycin dose of osteomyelitis is shown in proximal margin. Plan: 1. Continue IV vancomycin at present dose. 2. Follow operative site appearance as well as surgical plans. 3. Await return of pathology. 01/17/18 10:05 01/17/18 10:06 Subjective: Patient is resting comfortably in his hospital bed. He denies any new complaint. Denies any fevers or chills. No rash. No diarrhea. Objective: Vancomycin IV # 3 Vancomycin p.o. Vital Signs Temp Pulse Resp BP Pulse Ox 36.7 C 71 20 125/65 H 96 01/17/18 08:00 01/17/18 08:00 01/17/18 08:00 01/17/18 08:00 01/17/18 08:00 Microbiology 01/16/18 11:45 Gram Stain - Final Foot - Bone Laboratory Results 01/17/18 06:00 01/17/18 06:00 01/16/18 01/17/18 01/18/18 05:59 05:59 05:59 Intake Total 3263 2631 Output Total 950 290 575 Balance 2313 5951 -577 - Physical Exam General Appearance: WD/WN, alert, no apparent distress, non-toxic Cardiac/Chest: regular rate, rhythm, No tachycardia Extremities: non-tender, No normal inspection Skin: normal color, warm/dry, No rash Neuro/Psych: alert, normal mood/affect, oriented x 3 ICD10 Worksheet Patient Problems: Problems Problem Status Onset Diabetic infection of right foot Acute
--- NOTE | 2018-01-17 11:52 | ASMTCMCOM ---
CM Note CM Note Notes: CM met w/ pt for dispo planning. CM obained released for [facility], [facility] and another release for [facility]. CM spoke to Blanca, a field care coordinator at [facility]. Blanca reports that pt was previously living w/ his sister from September-October then while he was hospitalized his sister sold the house they were living in and put all of his belongings in a storage unit, leaving him homeless. Pt stayed at a [facility] resp[facility] for 1 week. Afterwards Blanca arranged for pt to stay at [facility] respite. Blanca reports that she set pt up w/ [facility] for an RN to come dress his wounds at [facility] but they failed to show up after a RN left their organization. Blanca was not happy w/ their services and would like CM to use another HC agency if he needs it. Blanca reports that pt couldn't stay at the [facility] because he didn't meet one of the criteria because he is newly homeless. CM spoke to Gold Waller at [facility]. Pt stayed at [facility] respite for 3 1/2 weeks. [facility] extended his stay for a week and a half. Gold reports that it would be very difficult for him to return but he can speak to his director Cathleen. Pt has been dx w/ PTSD according to Gold. F: [phone] P#: [phone] CM left a msg for [facility]. PT has been ordered and awaiting recommendations. CM contacted Sofie to see if she could help him apply for Medicaid. Needs are TBD at this time. CM to follow. Plan: TBD Date Signed: 01/17/2018 11:51 AM Electronically Signed By:EARL Casillas
[2018-01-17] MEDS ORDERED: PROTOCOL CALCIUM 1 DOSE IV PRN (15:06)
--- NOTE | 2018-01-17 15:06 | HOSPPROG ---
Hospitalist Progress Note Assessment/Plan: Peri Londono is a 57 y/o male w diabetes who presented to the ER with a foot infection. 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 -+ MRSA, group a strep, Alcaligenes in the tissue culture -status post transmetatarsal amputation and tendon release -wound vac -Vancomycin *proteinuria, pyruia, hematuria -needs further evaluation *anemia -has had multiple hospital stays, will follow -B12 elevated *recent hx of c difficile -oral vancomycin initiated due to being on antibiotics (suppressive therapy) *IDDM -sliding scale and home regimen *hypocalcemia -ionized ca 1.09 -check a PTH and vitamin D level *homelessness -gets food stamps. *DVT prophylaxis: LMWH Subjective: Peri has no complaints. Objective: Vital Signs Temp Pulse Resp BP Pulse Ox 36.8 C 75 20 127/70 H 96 01/17/18 12:00 01/17/18 12:00 01/17/18 12:00 01/17/18 12:00 01/17/18 12:00 Microbiology 01/16/18 11:45 Gram Stain - Final Foot - Bone Laboratory Results 01/17/18 06:00 01/17/18 06:00 01/16/18 01/17/18 01/18/18 05:59 05:59 05:59 Intake Total 3263 2631 Output Total 417 194 7502 Balance 2313 2341 -1025 PT 16.0 SEC (12.0-15.0) H 01/14/18 18:31 INR 1.26 (0.83-1.16) H 01/14/18 18:31 - Physical Exam Constitutional: not in pain, chronically ill appearing Eyes: PERRL Ears, Nose, Mouth, Throat: hearing normal Cardiovascular: regular rate and rhythym Respiratory: no respiratory distress Skin: warm, other (right toes all amputated, dressing on achilles area, wound vac in place) Musculoskeletal: generalized weakness Neurologic: AAOx3 Psychiatric: flat affect ICD10 Worksheet Patient Problems: Problems Problem Status Onset Diabetic infection of right foot Acute
--- NOTE | 2018-01-17 16:59 | SOAPPROG ---
SOAP Progress Note Assessment/Plan: Assessment/Plan: 57-year-old man postoperative day 1. Status post right transmetatarsal amputation with Achilles release Prevena incisional wound VAC in place. This will automatically turned off after 1 week and can be disposed of No surrounding erythema Postoperative boot when ambulating Physical therapy and occupational therapy S: No pain. He has not gotten up to walk since surgery and has not worked with physical therapy yet. No fevers or chills O: Lying in bed, no acute distress, minimally interactive but very intensively watching [place] No increased work of breathing Right postop boot in place. Incisional wound VAC in place. No evidence of surrounding erythema. No right lower extremity edema. Right posterior Achilles dressing in place. Objective: Vital Signs Temp Pulse Resp BP Pulse Ox 36.8 C 75 20 127/70 H 96 01/17/18 12:00 01/17/18 12:00 01/17/18 12:00 01/17/18 12:00 01/17/18 12:00 Microbiology 01/16/18 11:45 Gram Stain - Final Foot - Bone Laboratory Results 01/17/18 06:00 01/17/18 06:00 01/16/18 01/17/18 01/18/18 05:59 05:59 05:59 Intake Total 3263 2631 Output Total 444 997 4217 Balance 2313 2341 -1025 PT 16.0 SEC (12.0-15.0) H 01/14/18 18:31 INR 1.26 (0.83-1.16) H 01/14/18 18:31 ICD10 Worksheet Patient Problems: Problems Problem Status Onset Diabetic infection of right foot Acute
[2018-01-17] MEDS ORDERED: CALCIUM GLUCONATE 50 ML IV ONE (17:07)
[2018-01-17] MEDS ORDERED: CALCIUM GLUCONATE 1 GM in D5W 50 ML IV ONE (17:30)
[2018-01-17] MEDS: INSULIN GLARGINE 100 UNITS/ML UNIT SC SCH (21:48)
[2018-01-18] MEDS: NS 1,000 ML IV SCH ×2 (05:47→17:27)
[2018-01-18] MEDS: VANCOMYCIN HCL/NORMAL SALINE 250 ML IV SCH ×2 (05:47→18:27)
[2018-01-18] MEDS: ASPIRIN 81 MG CHEWABLE TAB PO SCH (09:14)
[2018-01-18] MEDS: CHOLECALCIFEROL VIT D3 1,000 UNITS TAB PO SCH (09:14)
[2018-01-18] MEDS: ENOXAPARIN 40 MG/0.4 ML SYR SC SCH (09:15)
[2018-01-18] MEDS: VANCOMYCIN 125 MG/2.5 ML UDL PO SCH ×2 (09:15→22:10)
[2018-01-18] MEDS: BISOPROLOL FUMARATE 5 MG TAB PO SCH (09:15)
[2018-01-18] MEDS: INSULIN LISPRO 100 UNIT/ML SC SCH ×3 (09:19→18:27)
--- NOTE | 2018-01-18 13:31 | HOSPPROG ---
Hospitalist Progress Note Assessment/Plan: Peri Londono is a 57 y/o male w diabetes who presented to the ER with a foot infection. 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 -+ MRSA, group a strep, Alcaligenes in the tissue culture -status post transmetatarsal amputation and tendon release -wound vac -Vancomycin *proteinuria, pyruia, hematuria -needs further evaluation *anemia -has had multiple hospital stays, will follow -B12 elevated *recent hx of c difficile -oral vancomycin initiated due to being on antibiotics (suppressive therapy) *IDDM -sliding scale and home regimen *hypocalcemia wit elevated PTH -likely due to low Vitamin D levels, will add daily vitamin D -calcium protocol -will need this f/u in OP setting *left knee pain -says his left knee sofiya and has been causing him pain -will get an x ray *homelessness -gets food stamps. *DVT prophylaxis: LMWH *plan: knee xray, will have nursing staff remove TLC in groin Subjective: Peri said his left knee has been bothering him and feels like it is going to buckle when he stands on it. Objective: Vital Signs Temp Pulse Resp BP Pulse Ox 36.7 C 69 18 123/59 H 95 01/18/18 11:59 01/18/18 11:59 01/18/18 11:59 01/18/18 11:59 01/18/18 11:59 Microbiology 01/16/18 11:45 Gram Stain - Final Foot - Bone Laboratory Results 01/17/18 06:00 01/17/18 06:00 01/17/18 01/18/18 01/19/18 05:59 05:59 05:59 Intake Total 2631 3743 Output Total 290 1525 650 Balance 2341 2218 -650 PT 16.0 SEC (12.0-15.0) H 01/14/18 18:31 INR 1.26 (0.83-1.16) H 01/14/18 18:31 - Physical Exam Constitutional: chronically ill appearing, other (looks older than his stated year) Eyes: PERRL Ears, Nose, Mouth, Throat: hearing normal Cardiovascular: no murmur, rub, or gallop Respiratory: no respiratory distress, reduced air movement Skin: warm, other (r foot in a splint, wound vac, left knee tender with palp) Musculoskeletal: generalized weakness Neurologic: AAOx3 Psychiatric: interacting appropriately, flat affect ICD10 Worksheet Patient Problems: Problems Problem Status Onset Diabetic infection of right foot Acute
--- NOTE | 2018-01-18 16:52 | ASMTCMCOM ---
CM Note CM Note Notes: Therapies are recommending SNF. CM started ULTC-100 and faxed it to [facility]. Referrals sent to SNFs. JONATHON spoke to Blanca at [facility]. She reports that she spoke to Sindy Tijerina at [facility]. Blanca reports that in the event that pt is unable to get into a SNF pt can stay at [facility]. Blanca's number is [phone]. Blanca would like to be notified if pt discharges. Sofie met w/ pt and reports that she is unable to help him w/ the disability application. Correction Pt has Medicaid. CM to follow. Plan: SNF Date Signed: 01/18/2018 04:52 PM Electronically Signed By:EARL Casillas
--- NOTE | 2018-01-18 17:08 | SOAPPROG ---
SOAP Progress Note Assessment/Plan: Assessment/Plan: 57-year-old man postoperative day 2 Status post right transmetatarsal amputation with Achilles release Prevena incisional wound VAC in place. This will automatically turned off after 1 week and can be disposed of No surrounding erythema Postoperative boot when ambulating Physical therapy and occupational therapy Appreciate hospitalist management of comorbidities S: No pain. He worked did physical therapy already this morning. Has difficulty walking because he feels like his left knee is buckling. No fevers or chills O: Lying in bed, no acute distress No increased work of breathing Incisional wound VAC in place. No evidence of surrounding erythema. No right lower extremity edema. Right posterior Achilles dressing in place. Objective: Vital Signs Temp Pulse Resp BP Pulse Ox 36.7 C 79 18 123/59 H 83 L 01/18/18 11:59 01/18/18 12:25 01/18/18 11:59 01/18/18 11:59 01/18/18 12:25 Microbiology 01/16/18 11:45 Gram Stain - Final Foot - Bone Laboratory Results 01/17/18 06:00 01/17/18 06:00 01/17/18 01/18/18 01/19/18 05:59 05:59 05:59 Intake Total 2631 3743 Output Total 290 1525 650 Balance 2341 2218 -650 PT 16.0 SEC (12.0-15.0) H 01/14/18 18:31 INR 1.26 (0.83-1.16) H 01/14/18 18:31 ICD10 Worksheet Patient Problems: Problems Problem Status Onset Diabetic infection of right foot Acute
--- NOTE | 2018-01-18 17:13 | PCMIDPN ---
Assessment/Plan: # MRSA soft tissue infection and osteomyelitis of the 3rd metatarsal s/p transmetatarsal 01/16/2018. Cultures from clean margins are NGTD. Awaiting pathology to assess if residual osteomyelitis to determine length of treatment. --typically path takes about 1 week to come back therefore coached patient that he will need to stay inpatient over that duration. (Due to homelessness) --continue vancomycin 1 g IV q.12, recheck trough and creatinine tomorrow --contact isolation # recent history of C diff: Restarted suppressive vancomycin p.o. Medications Vancomycin 1 g IV q.12, # 4 Vancomycin 125 mg p.o. Twice daily Microbiology wound culture: MRSA, group a strep and Alcaligenes OR culture: Gram stain negative; culture NGTD Blood cultures: NGTD Subjective: Patient without complaints, denies diarrhea Objective: Vital Signs Temp Pulse Resp BP Pulse Ox 36.6 C 71 16 136/77 H 95 01/18/18 16:00 01/18/18 16:00 01/18/18 16:00 01/18/18 16:00 01/18/18 16:00 Microbiology 01/16/18 11:45 Gram Stain - Final Foot - Bone Laboratory Results 01/17/18 06:00 01/17/18 06:00 01/17/18 01/18/18 01/19/18 05:59 05:59 05:59 Intake Total 2631 3743 Output Total 290 1525 650 Balance 2341 2248 -650 - Physical Exam General Appearance: alert, no apparent distress Respiratory: lungs clear, No accessory muscle use Neck: supple Cardiac/Chest: regular rate, rhythm Extremities: other (Trans metatarsal right foot, 2+ pulses , no erythema, wound VAC in place) Skin: No rash Neuro/Psych: alert, normal mood/affect, oriented x 3 - Line/s RUE PICC Lines: No drainage, No erythema ICD10 Worksheet Patient Problems: Problems Problem Status Onset Diabetic infection of right foot Acute
[2018-01-18] MEDS: INSULIN GLARGINE 100 UNITS/ML UNIT SC SCH (22:10)
[2018-01-19] MEDS: ACETAMINOPHEN 325 MG TAB PO PRN ×2 (01:36→22:16)
[2018-01-19] MEDS: VANCOMYCIN HCL/NORMAL SALINE 250 ML IV SCH ×2 (05:32→20:22)
[2018-01-19] MEDS: BISOPROLOL FUMARATE 5 MG TAB PO SCH (09:55)
[2018-01-19] MEDS: INSULIN LISPRO 100 UNIT/ML SC SCH ×3 (09:55→18:38)
[2018-01-19] MEDS: CHOLECALCIFEROL VIT D3 1,000 UNITS TAB PO SCH (09:55)
[2018-01-19] MEDS: ASPIRIN 81 MG CHEWABLE TAB PO SCH (09:56)
[2018-01-19] MEDS: VANCOMYCIN 125 MG/2.5 ML UDL PO SCH ×2 (09:56→22:10)
[2018-01-19] MEDS: ENOXAPARIN 40 MG/0.4 ML SYR SC SCH (09:57)
--- NOTE | 2018-01-19 15:44 | HOSPPROG ---
Hospitalist Progress Note Assessment/Plan: Peri Londono is a 57 y/o male w diabetes who presented to the ER with a foot infection. 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 -+ MRSA, group a strep, Alcaligenes in the tissue culture -status post transmetatarsal amputation and tendon release -wound vac -Vancomycin *proteinuria, pyruia, hematuria -needs further evaluation *anemia -has had multiple hospital stays, will follow -B12 elevated *recent hx of c difficile -oral vancomycin initiated due to being on antibiotics (suppressive therapy) *IDDM -sliding scale and home regimen *hypocalcemia wit elevated PTH -likely due to low Vitamin D levels, will add daily vitamin D -calcium protocol -will need this f/u in OP setting *left knee pain -x ray shows nothing acute -pain is better today *homelessness -gets food stamps. *DVT prophylaxis: LMWH *plan: continue current treatment Subjective: Peri has no complaints. Objective: Vital Signs Temp Pulse Resp BP Pulse Ox 37.2 C 66 16 136/64 H 97 01/19/18 12:10 01/19/18 12:10 01/19/18 12:10 01/19/18 12:10 01/19/18 12:10 Microbiology 01/16/18 11:45 Gram Stain - Final Foot - Bone Laboratory Results 01/17/18 06:00 01/17/18 06:00 01/18/18 01/19/18 01/20/18 05:59 05:59 05:59 Intake Total 3743 2305 400 Output Total 1525 650 200 Balance 2218 1655 200 PT 16.0 SEC (12.0-15.0) H 01/14/18 18:31 INR 1.26 (0.83-1.16) H 01/14/18 18:31 - Physical Exam Constitutional: no apparent distress, not in pain, chronically ill appearing Eyes: PERRL Ears, Nose, Mouth, Throat: hearing normal Cardiovascular: regular rate and rhythym Respiratory: no respiratory distress Skin: warm, other (wound vac on right foot) Musculoskeletal: generalized weakness Neurologic: AAOx3 Psychiatric: interacting appropriately, flat affect ICD10 Worksheet Patient Problems: Problems Problem Status Onset Diabetic infection of right foot Acute
--- NOTE | 2018-01-19 17:47 | PCMIDPN ---
Assessment/Plan: # MRSA soft tissue infection and osteomyelitis of the 3rd metatarsal s/p transmetatarsal 01/16/2018. Cultures from prox margins are NGTD. Awaiting pathology to assess if residual osteomyelitis to determine length of treatment. Not treating Alcaligenes as considered a colonizer --awaiting path --continue vancomycin 1 g IV q.12, recheck trough and creatinine today --contact isolation # recent history of C diff: Restarted suppressive vancomycin p.o. Medications Vancomycin 1 g IV q.12, # 5 Vancomycin 125 mg p.o. Twice daily Microbiology wound culture: MRSA, group a strep and Alcaligenes OR culture: Gram stain negative; culture NGTD Blood cultures: NGTD Subjective: 1 loose stool this morning but nothing like when he had C diff Objective: Vital Signs Temp Pulse Resp BP Pulse Ox 37.1 C 69 16 126/65 H 96 01/19/18 16:00 01/19/18 16:00 01/19/18 16:00 01/19/18 16:00 01/19/18 16:00 Microbiology 01/16/18 11:45 Gram Stain - Final Foot - Bone Laboratory Results 01/17/18 06:00 01/17/18 06:00 01/18/18 01/19/18 01/20/18 05:59 05:59 05:59 Intake Total 3743 2305 400 Output Total 1525 650 200 Balance 2218 1655 200 - Physical Exam General Appearance: alert, obese EENT: No scleral icterus Respiratory: lungs clear, No accessory muscle use Neck: supple Cardiac/Chest: regular rate, rhythm Extremities: other (Right transmetatarsal amputation with incisional VAC in place, no erythema, mild lower extremity edema 1 to 2+) Peripheral Pulses: 1+: dorsalis-pedis (R), dorsalis-pedis (L) Skin: No rash Neuro/Psych: alert, normal mood/affect - Line/s LUE PICC Lines: No drainage, No erythema - Time Spent With Patient Time Spent with Patient: greater than 25 minutes Time Spent with Patient: Greater than 25 minutes spent on this patients care, greater than 50% of time spent counseling, educating, and coordinating care regarding the above mentioned plan. ICD10 Worksheet Patient Problems: Problems Problem Status Onset Diabetic infection of right foot Acute
--- NOTE | 2018-01-19 18:11 | SOAPPROG ---
SOAP Progress Note Assessment/Plan: Assessment/Plan: 57-year-old man postoperative day 3. Status post right transmetatarsal amputation with Achilles release Prevena incisional wound VAC in place. This will automatically turned off after 1 week and can be disposed of No surrounding erythema Postoperative boot when ambulating Physical therapy and occupational therapy Will remain inpatient until path returns. S: No pain. Working with PT. Tiny amount of blood in tubing new. No fevers or chills O: Lying in bed, no acute distress, comfortable No increased work of breathing Incisional wound VAC in place. No evidence of surrounding erythema. Tiny amount of blood in No right lower extremity edema. Right posterior Achilles incision well-healed Objective: Vital Signs Temp Pulse Resp BP Pulse Ox 37.1 C 69 16 126/65 H 96 01/19/18 16:00 01/19/18 16:00 01/19/18 16:00 01/19/18 16:00 01/19/18 16:00 Microbiology 01/16/18 11:45 Gram Stain - Final Foot - Bone Laboratory Results 01/17/18 06:00 01/17/18 06:00 01/18/18 01/19/18 01/20/18 05:59 05:59 05:59 Intake Total 3743 2305 1950 Output Total 1525 650 200 Balance 2218 1655 1750 PT 16.0 SEC (12.0-15.0) H 01/14/18 18:31 INR 1.26 (0.83-1.16) H 01/14/18 18:31 ICD10 Worksheet Patient Problems: Problems Problem Status Onset Diabetic infection of right foot Acute
[2018-01-19] MEDS: INSULIN GLARGINE 100 UNITS/ML UNIT SC SCH (22:09)
[2018-01-20] MEDS: NS 1,000 ML IV SCH ×3 (05:52→22:30)
[2018-01-20] MEDS: VANCOMYCIN 125 MG/2.5 ML UDL PO SCH ×2 (09:39→20:38)
[2018-01-20] MEDS: BISOPROLOL FUMARATE 5 MG TAB PO SCH (09:40)
[2018-01-20] MEDS: ASPIRIN 81 MG CHEWABLE TAB PO SCH (09:40)
[2018-01-20] MEDS: CHOLECALCIFEROL VIT D3 1,000 UNITS TAB PO SCH (09:40)
[2018-01-20] MEDS: HEPARIN 5,000 UNIT/0.5 ML INJ SC SCH ×2 (09:49→16:54)
[2018-01-20] MEDS: INSULIN LISPRO 100 UNIT/ML SC SCH ×3 (10:03→17:46)
--- NOTE | 2018-01-20 10:08 | HOSPPROG ---
Hospitalist Progress Note Assessment/Plan: Peri Londono is a 57 y/o male w diabetes who presented to the ER with a foot infection. First encounter, chart reviewed. D/W Dr Shelton and pharmacy. 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 -+ MRSA, group a strep, Alcaligenes in the tissue culture -status post transmetatarsal amputation and tendon release -wound vac -Vancomycin on hold, elevated trough *proteinuria, pyruia, hematuria -needs further evaluation -UA ordered, creatine, sodium ordered *DIANNE -hydrate -hold vanco -follow -consider renal consult -change to heparin sq *anemia -has had multiple hospital stays, will follow -B12 elevated *recent hx of c difficile -oral vancomycin initiated due to being on antibiotics (suppressive therapy) *IDDM -sliding scale and home regimen *hypocalcemia wit elevated PTH -likely due to low Vitamin D levels, will add daily vitamin D -calcium protocol -will need this f/u in OP setting *left knee pain -x ray shows nothing acute -pain is better today *homelessness -gets food stamps. *DVT prophylaxis: LMWH *plan: continue current treatment IVF, hold abx Subjective: Feeling ok. Tired. No other issues. Objective: Vital Signs Temp Pulse Resp BP Pulse Ox 36.8 C 72 18 124/54 H 75 L 01/19/18 22:34 01/19/18 22:34 01/19/18 22:34 01/19/18 22:34 01/20/18 09:37 Microbiology 01/16/18 11:45 Gram Stain - Final Foot - Bone Laboratory Results 01/17/18 06:00 01/20/18 05:45 01/19/18 01/20/18 01/21/18 05:59 05:59 05:59 Intake Total 2305 2950 Output Total 650 600 Balance 1655 2350 PT 16.0 SEC (12.0-15.0) H 01/14/18 18:31 INR 1.26 (0.83-1.16) H 01/14/18 18:31 - Physical Exam Constitutional: appears nourished, chronically ill appearing, uncomfortable Eyes: PERRL, anicteric sclera, EOMI Ears, Nose, Mouth, Throat: moist mucous membranes, hearing normal, ears appear normal Cardiovascular: No JVD, No tachycardia, No edema Respiratory: no respiratory distress, no rales or rhonchi, reduced air movement Gastrointestinal: normoactive bowel sounds, No tenderness, No ascites Skin: warm, erythema, No mottled Musculoskeletal: joint tenderness, pain with ROM, muscular tenderness, generalized weakness Neurologic: AAOx3 Psychiatric: not anxious, not encephalopathic, thought process linear, poor insight ICD10 Worksheet Patient Problems: Problems Problem Status Onset Diabetic infection of right foot Acute
--- NOTE | 2018-01-20 11:31 | PCMIDPN ---
Assessment/Plan: # MRSA soft tissue infection and osteomyelitis of the right 3rd metatarsal s/p transmetatarsal 01/16/2018. Cultures from prox margins remain negative. Awaiting pathology to assess if residual osteomyelitis to determine length of treatment. Not treating Alcaligenes as considered a colonizer. Patient with incisional wound VAC --vancomycin level okay today, holding vancomycin in light of ARF --incisional wound VAC to remain in place x1 week per surgery # ARF: Suspect hypovolemia plus vancomycin, management per primary team. Noted consideration for renal consult # recent history of C diff: Restarted suppressive vancomycin p.o. Medications vancomycin level 22 Vancomycin 125 mg p.o. Twice daily Microbiology wound culture: MRSA, group a strep and Alcaligenes OR culture: Gram stain negative; culture NGTD Blood cultures: NGTD Subjective: Patient does admit that over the past couple days he has had decreased urinary output No pain No diarrhea, generally doing fine Objective: Vital Signs Temp Pulse Resp BP Pulse Ox 36.8 C 72 18 124/54 H 75 L 01/19/18 22:34 01/19/18 22:34 01/19/18 22:34 01/19/18 22:34 01/20/18 09:37 Microbiology 01/16/18 11:45 Gram Stain - Final Foot - Bone Laboratory Results 01/17/18 06:00 01/20/18 05:45 01/19/18 01/20/18 01/21/18 05:59 05:59 05:59 Intake Total 2305 2950 Output Total 650 600 Balance 1655 2350 - Physical Exam General Appearance: alert, no apparent distress Respiratory: No accessory muscle use Extremities: other (R foot with incisional wound vac in place no erythema, moderate edema) Skin: No rash Neuro/Psych: alert, normal mood/affect, oriented x 3 - Line/s LUE PICC Lines: No drainage, No erythema ICD10 Worksheet Patient Problems: Problems Problem Status Onset Diabetic infection of right foot Acute
--- NOTE | 2018-01-20 14:19 | ASMTCMCOM ---
CM Note CM Note Notes: Received call from Darrell at [facility] in [place], they are able to accept pt. DC date still uncertain, [facility] still needs to eval pt. CM called Nataliia [phone] at [facility] and left message about accepting facility. DC Plan: [facility] Date Signed: 01/20/2018 01:56 PM Electronically Signed By:Jelly Hernandez RN
[2018-01-20] MEDS: INSULIN GLARGINE 100 UNITS/ML UNIT SC SCH (22:08)
[2018-01-20] MEDS: ACETAMINOPHEN 325 MG TAB PO PRN (22:08)
[2018-01-21] MEDS: HEPARIN 5,000 UNIT/0.5 ML INJ SC SCH ×3 (01:02→16:48)
[2018-01-21 06:42] LABS: PLATELET COUNT 339 10^3/uL (150-400)
[2018-01-21] MEDS: VANCOMYCIN 125 MG/2.5 ML UDL PO SCH ×2 (08:32→20:32)
[2018-01-21] MEDS: BISOPROLOL FUMARATE 5 MG TAB PO SCH (08:32)
[2018-01-21] MEDS: ASPIRIN 81 MG CHEWABLE TAB PO SCH (08:33)
[2018-01-21] MEDS: INSULIN LISPRO 100 UNIT/ML SC SCH ×3 (08:33→17:11)
[2018-01-21] MEDS: CHOLECALCIFEROL VIT D3 1,000 UNITS TAB PO SCH (08:33)
--- NOTE | 2018-01-21 09:47 | HOSPPROG ---
Hospitalist Progress Note Assessment/Plan: Peri Londono is a 57 y/o male w diabetes who presented to the ER with a foot infection. D/W Dr King, [place] and pharmacy. 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 -+ MRSA, group a strep, Alcaligenes in the tissue culture -status post transmetatarsal amputation and tendon release -wound vac -Vancomycin on hold, elevated trough *proteinuria, pyruia, hematuria -UA ordered, creatine, sodium follow *DIANNE -hydrate, IVF -pt refusing bey, minimal urine -hold vanco -follow -renal consult today -heparin sq *anemia -has had multiple hospital stays, will follow -B12 elevated *recent hx of c difficile -oral vancomycin initiated due to being on antibiotics (suppressive therapy) *IDDM -sliding scale and home regimen *hypocalcemia wit elevated PTH -likely due to low Vitamin D levels, will add daily vitamin D -calcium protocol -will need this f/u in OP setting *left knee pain -x ray shows nothing acute -pain is better today *homelessness -gets food stamps. *DVT prophylaxis: LMWH *plan: continue current treatment IVF, hold abx, nephro consult Subjective: Up in chair. Feeling well. Difficult urinating. Objective: Vital Signs Temp Pulse Resp BP Pulse Ox 36.6 C 62 20 134/77 H 97 01/21/18 07:57 01/21/18 07:57 01/21/18 07:57 01/21/18 07:57 01/21/18 07:57 Microbiology 01/16/18 11:45 Gram Stain - Final Foot - Bone Laboratory Results 01/21/18 06:20 01/21/18 06:20 01/20/18 01/21/18 01/22/18 05:59 05:59 05:59 Intake Total 2950 200 Output Total 600 350 0 Balance 2350 -150 0 PT 16.0 SEC (12.0-15.0) H 01/14/18 18:31 INR 1.26 (0.83-1.16) H 01/14/18 18:31 - Physical Exam Constitutional: appears nourished, not in pain, chronically ill appearing Eyes: PERRL, anicteric sclera, EOMI Ears, Nose, Mouth, Throat: moist mucous membranes, hearing normal, ears appear normal Cardiovascular: No JVD, No tachycardia, No edema Respiratory: no respiratory distress, no rales or rhonchi, reduced air movement Gastrointestinal: normoactive bowel sounds, No tenderness, No ascites Skin: warm, normal color, other (wound), No mottled Musculoskeletal: joint tenderness, pain with ROM, muscular tenderness, generalized weakness Neurologic: AAOx3 Psychiatric: not anxious, not encephalopathic, poor insight, poor judgement ICD10 Worksheet Patient Problems: Problems Problem Status Onset Diabetic infection of right foot Acute
--- NOTE | 2018-01-21 12:42 | GCON ---
NEPHROLOGY CONSULTATION DATE OF CONSULTATION: 01/21/2018 REFERRING PHYSICIAN: Lorin Terrazas NP REASON FOR CONSULTATION: Acute kidney injury. HISTORY OF PRESENT ILLNESS: This is a 57-year-old male with a past medical history significant prima rily for diabetes, who now presents with acute kidney injury. History is obtained from the medical s taff and the medical record. The patient is only a fair historian. The patient was admitted to [facility] on the with evidence of worsening of a rig ht diabetic foot ulcer. He was having systemic signs of fever. The patient had previously been hosp italized in the end of November with similar issues. At the time of admission, the patient's temperature was 39.9. His blood pressure was 125. His blood pressures since that time have been relatively nor mal. On the , he did have a slight blood pressure drop, but still remained over 100 systolic. O n admission, the patient was started on ertapenem and vancomycin. His creatinine at the time of admi ssion was 1.2. Since that admission, the patient has clinically improved. He did have evidence of C difficile colit is and was placed on oral vancomycin. He is now having 1 stool a day. The patient's creatinine impr cosme from 1.2 on the to 1.0 on the . Since that time, it has steadily risen, from 2.3 on the to 3.0 on the , to a current level of 3.6. It has been difficult to monitor input and outp ut, although it is felt that his urine output has decreased somewhat. He did, however, have a large void on the floor, per the nursing staff. Since the patient's creatinine has been rising, he has bee n on normal saline. At this point, he is developing worsening lower extremity edema. As noted previ ously, his blood pressure has been stable. The patient has received vancomycin in treatment of his foot infection. Trough levels have been foll owed and were slightly elevated on the . His vancomycin has been stopped and his random levels h ave since been drifting downward. I do not see that the patient has received any contrast or any other nephrotoxins. He has a mild aci demia present, but otherwise has normal electrolytes. As related to the above issues, we are asked Mai Terrazas NP, to assist in the patient's renal diagnosis and management. PAST MEDICAL HISTORY: 1. Diabetes mellitus. 2. Previous diabetic foot wound. 3. C difficile colitis. 4. Hypertension. PAST SURGICAL HISTORY: Right toe amputations x2. FAMILY HISTORY: Negative. SOCIAL HISTORY: The patient is homeless. He denies tobacco or alcohol use. REVIEW OF SYSTEMS: GENERAL: The patient denies fevers, chills, or sweats. He denies headaches. He denies vision disturbances. Denies rhinitis or sore throat. He denies cough or shortness of breath . He denies chest pain or palpitations. He denies abdominal pain or constipation. He was having di arrhea, but this is improved. He denies difficulty voiding. He has been developing worsening lower extremity edema. He denies lower extremity edema in his left leg as an outpatient. He denies skin r ashes. He is having the aforementioned foot ulcer. He denies numbness in his fingers or toes. PHYSICAL EXAM: GENERAL: At time of exam, the patient is alert and oriented. VITAL SIGNS: Temperat ure 36.6, pulse 59, blood pressure 132/74. EYES: Sclerae clear. OROPHARYNX: Multiple dental alejandra s are noted. NECK: Very difficult to examine, relating to the patient. LUNGS: Bronchial breath so unds are heard in the bases. The patient's bases are somewhat diminished. CARDIOVASCULAR: Regular rate and rhythm. No gallops, rubs. ABDOMEN: Soft, nontender. No organomegaly. /RECTAL: Deferr ed. EXTREMITIES: The patient's right foot is in a boot. He has 2 to 3+ left lower extremity edema. INTEGUMENT: Generally clear except for the patient's aforementioned foot ulcer. NEURO: No focal findings. LABORATORY STUDIES: Sodium 135, potassium 4.7, chloride 109, bicarb 16, creatinine 3.6, calcium 7.9, ionized calcium 1.14. White count 6.7, hematocrit 22.8, platelets 339. Vanco level 18.6. Urinalys is, when the patient originally presented, was notable for 2+ protein and 3+ blood. On the 12th, his urine sodium was 9 and his urine creatinine was 292. IMPRESSION: 1. Acute kidney injury. The patient did have a normal creatinine on admission, but he did have evid ence of hematuria and proteinuria on a urinalysis. On the 12th, he had a low fractional excretion of sodium. In looking at his hemodynamics, they have been relatively stable. He did receive some vanc omycin, but he does not have particular risk factors for developing vancomycin nephrotoxicity. Perha ps the exception would be his already abnormal urinalysis and hypoalbuminemia. a. At present, the patient's differential could include urinary obstruction, vancomycin nephrotoxici ty, or a co-infectious glomerulonephritis. We will go ahead and perform a bladder postvoid residual, and place a Chambers catheter if needed. We will further quantitate his urine protein. I will check h epatitis serologies and complements. The patient will be placed on a low-potassium diet and fluid re striction. The patient shows evidence of volume overload and I will discontinue his normal saline. b. I did advise the patient of his recurrent acute kidney injury. I do expect this to be a reversib le process. I did advise him of the potential need for dialysis. We discussed the importance of rani eulalia on a potassium restriction. All of his questions were answered. 2. Anemia. The patient has a very labile hemoglobin. I will discuss this with the hospitalist serv liset and recheck a hemoglobin. 3. C difficile colitis. The patient is clinically improved. 4. Foot ulcer. The infectious disease service is following. As his vancomycin level drifts down, h is antibiotics will be altered. Thank you for allowing us to participate in this young lady's care. We will continue to follow him c losely with you. /[id number]/MODL
[2018-01-21 15:09] LABS: HEPATITIS C ANTIBODY TOTAL NEGATIVE (NEGATIVE)
[2018-01-21] MEDS: SODIUM BICARBONATE 650 MG TAB PO SCH ×2 (15:42→20:32)
[2018-01-21 16:28] LABS: HEPATITIS B SURFACE ANTIGEN NEGATIVE (NEGATIVE)
--- NOTE | 2018-01-21 16:46 | ASMTCMCOM ---
CM Note CM Note Notes: Nataliia from [facility] was here to evaluate pt for SNF. Pt has been accepted by [facility] [place] and [facility]. His business case analyst from [facility] [phone] has been working with pt closely and she has been assisting him with finding housing through [facility]. She encourages us to keep him in [place] so they can continue to help him. Pt is agreeable to [facility] and knows he will be here through the weekend. DC Plan: SNF/[facility] Date Signed: 01/21/2018 04:46 PM Electronically Signed By:Jelly Hernandez RN
--- NOTE | 2018-01-21 18:18 | SOAPPROG ---
SOAP Progress Note Assessment/Plan: Assessment/Plan: 57-year-old man status post right transmetatarsal amputation with Achilles release Prevena incisional wound VAC in place. This will automatically turned off after 1 week and can be disposed of No surrounding erythema Postoperative boot when ambulating Physical therapy and occupational therapy Comorbidities per hospitalists S: No pain. Working with PT. No fevers or chills. No increased swelling BLE per pt report O: sitting up in chair, no acute distress, comfortable No increased work of breathing Incisional wound VAC in place. No evidence of surrounding erythema. Tiny amount of blood in canister. 1+ peripheral edema bilaterally Objective: Vital Signs Temp Pulse Resp BP Pulse Ox 37.2 C 64 20 141/81 H 96 01/21/18 16:00 01/21/18 16:00 01/21/18 16:00 01/21/18 16:00 01/21/18 16:00 Microbiology 01/16/18 11:45 Gram Stain - Final Foot - Bone Laboratory Results 01/21/18 Unknown 01/21/18 12:55 01/20/18 01/21/18 01/22/18 05:59 05:59 05:59 Intake Total 2950 200 1300 Output Total 600 350 2 Balance 2350 -150 1298 PT 16.0 SEC (12.0-15.0) H 01/14/18 18:31 INR 1.26 (0.83-1.16) H 01/14/18 18:31 ICD10 Worksheet Patient Problems: Problems Problem Status Onset Diabetic infection of right foot Acute
[2018-01-21] MEDS: INSULIN GLARGINE 100 UNITS/ML UNIT SC SCH (20:32)
[2018-01-21] MEDS: ACETAMINOPHEN 325 MG TAB PO PRN (20:33)
[2018-01-22] MEDS: HEPARIN 5,000 UNIT/0.5 ML INJ SC SCH ×3 (00:54→17:32)
[2018-01-22] MEDS: INSULIN LISPRO 100 UNIT/ML SC SCH ×3 (07:58→17:47)
--- NOTE | 2018-01-22 09:18 | SOAPPROG ---
SOAP Progress Note Assessment/Plan: Assessment/Plan: 57-year-old man status post right transmetatarsal amputation with Achilles release, DM, cdif, DIANNE. Discussed with Rosalia Smith yesterday and Dr. Jacinto this am. Seen with hospitalist today. D/c'ed prevena incisional wound VAC. Placed silver dressing--this can be left in place for one week if intact. Suture line intact. Very mild maceration. No erythema. Postoperative boot when ambulating Physical therapy and occupational therapy Comorbidities per hospitalists--may be getting a temporary HD catheter. S: No pain. Sitting in chair eating breakfast. O: sitting up in chair, no acute distress, comfortable, cooperative No increased work of breathing see above for wound 01/22/18 09:14 Objective: Vital Signs Temp Pulse Resp BP Pulse Ox 36.5 C 63 18 136/70 H 90 L 01/22/18 07:58 01/22/18 07:58 01/22/18 07:58 01/22/18 07:58 01/22/18 07:58 Microbiology 01/16/18 11:45 Gram Stain - Final Foot - Bone Laboratory Results 01/21/18 Unknown 01/22/18 06:00 01/21/18 01/22/18 01/23/18 05:59 05:59 05:59 Intake Total 200 1700 Output Total 350 172 Balance -150 1528 PT 16.0 SEC (12.0-15.0) H 01/14/18 18:31 INR 1.26 (0.83-1.16) H 01/14/18 18:31 ICD10 Worksheet Patient Problems: Problems Problem Status Onset Diabetic infection of right foot Acute
[2018-01-22] MEDS: SODIUM BICARBONATE 650 MG TAB PO SCH ×3 (09:46→20:51)
[2018-01-22] MEDS: BISOPROLOL FUMARATE 5 MG TAB PO SCH (09:46)
[2018-01-22] MEDS: VANCOMYCIN 125 MG/2.5 ML UDL PO SCH (09:47)
[2018-01-22] MEDS: CHOLECALCIFEROL VIT D3 1,000 UNITS TAB PO SCH (09:47)
[2018-01-22] MEDS: ASPIRIN 81 MG CHEWABLE TAB PO SCH (09:47)
--- NOTE | 2018-01-22 11:36 | SOAPPROG ---
SOAP Progress Note Assessment/Plan: Assessment: 1. DIANNE Pt has low FENA (in setting of volume overload), along with hematuria and pyuria. He does not have much proteinuria though. He cannot provide a sample so that I can perform a micro. 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 Cannot R/O AIN. He is oliguric. He is stable overall now. He will likely need HD in next [address] catheter today, then assess for HD tomorrow. He will likely need a renal biopsy early next week. Serologies have been ordered. I reviewed above plan with Peri in detail. He understands, and agrees with plan. 2. Foot wound Being followed by surgery. 3. Acidosis Diarrhea better. On sodium bicarbonate. Plan: 01/22/18 11:33 Subjective: Doing ok. Objective: Vital Signs Temp Pulse Resp BP Pulse Ox 36.5 C 63 18 136/70 H 90 L 01/22/18 07:58 01/22/18 09:46 01/22/18 07:58 01/22/18 09:46 01/22/18 07:58 Microbiology 01/16/18 11:45 Gram Stain - Final Foot - Bone Laboratory Results 01/21/18 Unknown 01/22/18 06:00 01/21/18 01/22/18 01/23/18 05:59 05:59 05:59 Intake Total 200 1700 Output Total 350 172 Balance -150 1528 PT 16.0 SEC (12.0-15.0) H 01/14/18 18:31 INR 1.26 (0.83-1.16) H 01/14/18 18:31 Physical Exam - Physical Exam General Appearance: no apparent distress Respiratory: decreased breath sounds, other (Some bronchial BS in base, possible small effusions) Cardiac/Chest: regular rate, rhythm Extremities: other (Dsg on R foot, 2+ LE edema bilateral) Neuro/Psych: oriented x 3 ICD10 Worksheet Patient Problems: Problems Problem Status Onset Diabetic infection of right foot Acute
--- NOTE | 2018-01-22 12:07 | HOSPPROG ---
Hospitalist Progress Note Assessment/Plan: Peri Londono is a 57 y/o male w diabetes who presented to the ER with a foot infection. D/W Leland Boswell and Dr Lopez and Molly Hu. 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 -+ MRSA, group a strep, Alcaligenes in the tissue culture -status post transmetatarsal amputation and tendon release -wound vac off -Vancomycin on hold, elevated trough *proteinuria, pyruia, hematuria -appreciate nephrology -acidosis *DIANNE -temp HD cath placement today -will likely need HD in next 48 hours -pt refusing bey, oliguric -hold vanco -heparin sq *anemia -multifactorial *recent hx of c difficile -oral vancomycin initiated due to being on antibiotics (suppressive therapy) *IDDM -sliding scale and home regimen *hypocalcemia wit elevated PTH -likely due to low Vitamin D levels, will add daily vitamin D -calcium protocol -will need this f/u in OP setting *left knee pain -x ray shows nothing acute -pain is better today *homelessness -CM *DVT prophylaxis: LMWH *plan: temp HD cath placement per IR reviewed with Dr Ha follow labs Subjective: Up in the chair. Not hungry. Feeling ok. Objective: Vital Signs Temp Pulse Resp BP Pulse Ox 36.5 C 63 18 136/70 H 90 L 01/22/18 07:58 01/22/18 09:46 01/22/18 07:58 01/22/18 09:46 01/22/18 07:58 Microbiology 01/16/18 11:45 Gram Stain - Final Foot - Bone Laboratory Results 01/21/18 Unknown 01/22/18 06:00 01/21/18 01/22/18 01/23/18 05:59 05:59 05:59 Intake Total 200 1700 Output Total 350 172 Balance -150 1528 PT 16.0 SEC (12.0-15.0) H 01/14/18 18:31 INR 1.26 (0.83-1.16) H 01/14/18 18:31 - Physical Exam Constitutional: appears nourished, not in pain, chronically ill appearing Eyes: PERRL, anicteric sclera, EOMI Ears, Nose, Mouth, Throat: moist mucous membranes, hearing normal, ears appear normal Cardiovascular: No JVD, No tachycardia, No edema Respiratory: no respiratory distress, no rales or rhonchi, reduced air movement Gastrointestinal: normoactive bowel sounds, No tenderness, No ascites Skin: warm, normal color, No mottled Musculoskeletal: normal joint ROM, no joint effusions, generalized weakness Neurologic: AAOx3 Psychiatric: interacting appropriately, not anxious, not encephalopathic ICD10 Worksheet Patient Problems: Problems Problem Status Onset Diabetic infection of right foot Acute
[2018-01-22] MEDS ORDERED: fentaNYL 100 MCG/2 ML INJ IVP PRN (12:45)
[2018-01-22] MEDS ORDERED: ALTEPLASE 2 MG VIAL IVP PRN (12:45)
[2018-01-22] MEDS ORDERED: NS 1,000 ML IV SCH (12:45)
[2018-01-22] MEDS ORDERED: MEPERIDINE 25 MG/ML SYR IVP PRN (12:45)
[2018-01-22] MEDS ORDERED: MIDAZOLAM 2 MG/2 ML VIAL IVP PRN (12:45)
[2018-01-22] MEDS ORDERED: HEPARIN 10,000 UNIT/10 ML MDV (1,000 UNIT/ML) IVP PRN (12:45)
[2018-01-22] MEDS ORDERED: PROTAMINE SULFATE 50 MG/5 ML VIAL IVP PRN (12:45)
[2018-01-22] MEDS ORDERED: GLUCAGON HCL 1 MG VIAL IVP PRN (12:45)
[2018-01-22] MEDS ORDERED: NALOXONE HCL 0.4 MG/ML INJ IVP PRN (12:45)
[2018-01-22] MEDS ORDERED: FLUMAZENIL 0.5 MG/5 ML MDV IVP PRN (12:45)
[2018-01-22] MEDS ORDERED: HEPARIN 50,000 UNIT/10 ML VIAL ONE (13:04)
[2018-01-22 13:57] LABS: INR 1.21 (0.83-1.16); PROTIME(PATIENT) 15.5 SEC (12.0-15.0)
[2018-01-22] MEDS: CALCIUM CARBONATE 500 MG CHEWABLE TAB PO SCH ×2 (17:30→20:51)
[2018-01-22] MEDS: ACETAMINOPHEN 325 MG TAB PO PRN (17:40)
[2018-01-22] MEDS: INSULIN GLARGINE 100 UNITS/ML UNIT SC SCH (20:51)
[2018-01-23] MEDS: ACETAMINOPHEN 325 MG TAB PO PRN ×4 (01:23→21:58)
[2018-01-23] MEDS: HEPARIN 5,000 UNIT/0.5 ML INJ SC SCH ×3 (01:23→18:06)
[2018-01-23] MEDS: INSULIN LISPRO 100 UNIT/ML SC SCH ×3 (07:43→18:07)
[2018-01-23] MEDS: CALCIUM CARBONATE 500 MG CHEWABLE TAB PO SCH ×3 (08:26→21:57)
[2018-01-23] MEDS: CHOLECALCIFEROL VIT D3 1,000 UNITS TAB PO SCH (08:26)
[2018-01-23] MEDS: SODIUM BICARBONATE 650 MG TAB PO SCH ×3 (08:26→21:57)
[2018-01-23] MEDS: BISOPROLOL FUMARATE 5 MG TAB PO SCH (08:27)
--- NOTE | 2018-01-23 09:31 | SOAPPROG ---
SOAP Progress Note Assessment/Plan: Assessment: 1. DIANNE Pt has low FENA (in setting of volume overload), along with hematuria and pyuria. He does not have much proteinuria though. I am trying to get a urine sample for a personal micro exam. Initial serologies are negative. C' levels are pending. His FENA is low. He is oliguric. His FENA, and Urine dip suggest a coinfectious GN. A biopsy will be helpful, but he was on aspirin up through a few days ago. He needs dialysis today. I have informed him of the risks and benefits of dialysis. He agrees to proceed. 2. Foot wound/MRSA infection Being followed by surgery. 3. Acidosis Diarrhea better. On sodium bicarbonate. 4. Hypoxemia We will remove fluid on dialysis today 5. Psychosocial Pt appears depressed. He is also homeless. He will likely have further extended inpatient needs. 01/23/18 09:31 Subjective: Depressed affect Objective: Vital Signs Temp Pulse Resp BP Pulse Ox 36.6 C 61 16 133/76 H 97 01/23/18 07:37 01/23/18 08:27 01/23/18 07:37 01/23/18 08:27 01/23/18 07:37 Laboratory Results 01/21/18 Unknown 01/23/18 05:35 01/22/18 01/23/18 01/24/18 05:59 05:59 05:59 Intake Total 1700 450 300 Output Total 172 500 100 Balance 1528 -50 200 PT 15.5 SEC (12.0-15.0) H 01/22/18 13:10 INR 1.21 (0.83-1.16) H 01/22/18 13:10 Physical Exam - Physical Exam General Appearance: no apparent distress Neck: other (HD cath exit site ok) Respiratory: decreased breath sounds, crackles Cardiac/Chest: regular rate, rhythm Extremities: pedal edema Neuro/Psych: oriented x 3, depressed affect ICD10 Worksheet Patient Problems: Problems Problem Status Onset Diabetic infection of right foot Acute
--- NOTE | 2018-01-23 10:06 | SOAPPROG ---
SOAP Progress Note Assessment/Plan: Assessment/Plan: 57-year-old man status post right transmetatarsal amputation with Achilles release, DM, cdif, DIANNE. Dressing over TMA wound intact. HD today. D/w'ed RN. D/c'ed prevena incisional wound VAC. Placed silver dressing--this can be left in place for one week if intact. Postoperative boot when ambulating Physical therapy and occupational therapy Comorbidities per hospitalists--may be getting a temporary HD catheter. 01/23/18 10:05 Objective: Vital Signs Temp Pulse Resp BP Pulse Ox 36.6 C 61 16 133/76 H 97 01/23/18 07:37 01/23/18 08:27 01/23/18 07:37 01/23/18 08:27 01/23/18 07:37 Laboratory Results 01/21/18 Unknown 01/23/18 05:35 01/22/18 01/23/18 01/24/18 05:59 05:59 05:59 Intake Total 1700 450 300 Output Total 172 500 100 Balance 1528 -50 200 PT 15.5 SEC (12.0-15.0) H 01/22/18 13:10 INR 1.21 (0.83-1.16) H 01/22/18 13:10 ICD10 Worksheet Patient Problems: Problems Problem Status Onset Diabetic infection of right foot Acute
--- NOTE | 2018-01-23 10:47 | HOSPPROG ---
Hospitalist Progress Note Assessment/Plan: Peri Londono is a 57 y/o male w diabetes who presented to the ER with a foot infection. 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 -appreciate nephrology *anemia -multifactorial *Acidosis -Diarrhea better -On sodium bicarbonate. *recent hx of c difficile -oral vancomycin initiated due to being on antibiotics (suppressive therapy) *IDDM -sliding scale and home regimen *hypocalcemia wit elevated PTH -likely due to low Vitamin D levels, will add daily vitamin D -calcium protocol -will need this f/u in OP setting *left knee pain -x ray shows nothing acute -pain is better *homelessness -CM involved -pt seems frustrated *DVT prophylaxis: LMWH *plan: HD today cont supportive care Subjective: Up in chair. No pain. No specific issues. Objective: Vital Signs Temp Pulse Resp BP Pulse Ox 36.6 C 61 16 133/76 H 97 01/23/18 07:37 01/23/18 08:27 01/23/18 07:37 01/23/18 08:27 01/23/18 07:37 Laboratory Results 01/21/18 Unknown 01/23/18 05:35 01/22/18 01/23/18 01/24/18 05:59 05:59 05:59 Intake Total 1700 450 300 Output Total 172 500 100 Balance 1528 -50 200 PT 15.5 SEC (12.0-15.0) H 01/22/18 13:10 INR 1.21 (0.83-1.16) H 01/22/18 13:10 - Physical Exam Constitutional: appears nourished, not in pain Eyes: PERRL, anicteric sclera Ears, Nose, Mouth, Throat: moist mucous membranes, hearing normal Cardiovascular: No JVD, No edema Respiratory: no respiratory distress, reduced air movement Gastrointestinal: No tenderness, No ascites Skin: warm, normal color Musculoskeletal: no joint effusions, generalized weakness Neurologic: AAOx3 Psychiatric: not anxious, not encephalopathic, thought process linear, depressed ICD10 Worksheet Patient Problems: Problems Problem Status Onset Diabetic infection of right foot Acute
[2018-01-23] MEDS ORDERED: SODIUM CITRATE 4% 5 ML in SYRINGE 0 ML DIAL PRN (16:30)
[2018-01-23] MEDS: INSULIN GLARGINE 100 UNITS/ML UNIT SC SCH (21:58)
[2018-01-24] MEDS: HEPARIN 5,000 UNIT/0.5 ML INJ SC SCH ×3 (00:19→16:41)
[2018-01-24] MEDS: traMADol 50 MG TAB PO PRN ×3 (02:17→18:21)
[2018-01-24 04:13] LABS: HEPATITIS B CORE AB IGM NEGATIVE (NEGATIVE); HEPATITIS B SURFACE ANTIGEN NEGATIVE (NEGATIVE)
[2018-01-24 04:44] LABS: PLATELET COUNT 355 10^3/uL (150-400)
[2018-01-24] MEDS: INSULIN LISPRO 100 UNIT/ML SC SCH ×3 (08:00→18:16)
--- NOTE | 2018-01-24 10:41 | SOAPPROG ---
SOAP Progress Note Assessment/Plan: Assessment/Plan: DIANNE: Cr was 1.2 on presentation, got up to 4.2 yesterday and oliguric, in setting of low urine sodium, hematuria and pyuria, could have an infectious GN. - HD done yesterday and today. - Will plan on HD again on Wednesday if no improvement. - Will continue to monitor for renal recovery. - If pt does not demonstrate recovery, will consider renal biopsy, although not before the end of the week since he had gotten NSAIDs. - Serological workup pending. - Avoid hypotension and nephrotoxins. Anemia: Hgb down to 6.4. Will transfuse 1 unit PRBCs today and continue to monitor. Metabolic acidosis: improved with HD, will monitor and d/c sodium bicarb tabs for now. Hypervolemia: will modulate with fluid removal on HD. WHITNEY: Phos improving with HD, not yet on phos binder, will continue to monitor. Subjective: No acute events overnight. Pt still has swelling in his legs. He had HD yesterday and tolerated well, on HD again this am and doing fine. Objective: Vital Signs Temp Pulse Resp BP Pulse Ox 37.3 C 62 16 126/67 H 94 01/24/18 07:46 01/24/18 07:46 01/24/18 07:46 01/24/18 07:46 01/24/18 07:46 Laboratory Results 01/24/18 04:34 01/24/18 04:34 01/23/18 01/24/18 01/25/18 05:59 05:59 05:59 Intake Total 450 1300 50 Output Total 500 375 Balance -50 925 50 PT 15.5 SEC (12.0-15.0) H 01/22/18 13:10 INR 1.21 (0.83-1.16) H 01/22/18 13:10 General: alert and oriented, no acute distress Eyes: EOMI, PERRL OP: Clear CV: RRR Resp: nonlabored respirations on NC Abd: Soft, NT/ND Ext: +2 edema BLE Neuro: CN II-XII grossly intact, no asterixis Psych: cooperative ICD10 Worksheet Patient Problems: Problems Problem Status Onset Diabetic infection of right foot Acute
--- NOTE | 2018-01-24 10:52 | ASMTCMCOM ---
CM Note CM Note Notes: Pts case discussed w/ MELODY Chen. Pt is not medically stable to d/c. Pt had dialysis yesterday and another round of dialysis today. CM to follow. Plan: /Joel Uribe Date Signed: 01/24/2018 10:51 AM Electronically Signed By:EARL Casillas
[2018-01-24] MEDS: CHOLECALCIFEROL VIT D3 1,000 UNITS TAB PO SCH (11:57)
[2018-01-24] MEDS: CALCIUM CARBONATE 500 MG CHEWABLE TAB PO SCH ×3 (11:58→21:49)
[2018-01-24] MEDS: BISOPROLOL FUMARATE 5 MG TAB PO SCH (11:58)
[2018-01-24] MEDS: ACETAMINOPHEN 325 MG TAB PO PRN (11:59)
[2018-01-24] MEDS: SODIUM BICARBONATE 650 MG TAB PO SCH (12:08)
--- NOTE | 2018-01-24 13:52 | SOAPPROG ---
SOAP Progress Note Assessment/Plan: Assessment/Plan: 57-year-old man status post right transmetatarsal amputation with Achilles release Silver dressing in place - change PRN Postoperative boot when ambulating Physical therapy and occupational therapy Comorbidities per hospitalists/nephrology Patient was getting dialysis this am when I went to see him. Will attempt to see in dialysis Objective: Vital Signs Temp Pulse Resp BP Pulse Ox 37.1 C 68 16 117/74 92 01/24/18 12:58 01/24/18 12:58 01/24/18 12:58 01/24/18 12:58 01/24/18 12:58 Microbiology 01/16/18 11:45 Gram Stain - Final Foot - Bone Anaerobic Culture - Final Laboratory Results 01/24/18 04:34 01/24/18 04:34 01/23/18 01/24/18 01/25/18 05:59 05:59 05:59 Intake Total 450 1300 50 Output Total 500 375 Balance -50 925 50 PT 15.5 SEC (12.0-15.0) H 01/22/18 13:10 INR 1.21 (0.83-1.16) H 01/22/18 13:10 ICD10 Worksheet Patient Problems: Problems Problem Status Onset Diabetic infection of right foot Acute
--- NOTE | 2018-01-24 14:15 | HOSPPROG ---
Hospitalist Progress Note Assessment/Plan: Peri Londono is a 57 y/o male w diabetes who presented to the ER with a foot infection. 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 -appreciate nephrology *anemia -transfusion now *Acidosis -sodium bicarb tabs dc today by nephrology *recent hx of c difficile -oral vancomycin initiated due to being on antibiotics (suppressive therapy) *IDDM -sliding scale and home regimen *hypocalcemia wit elevated PTH -likely due to low Vitamin D levels, will add daily vitamin D -calcium protocol -will need this f/u in OP setting *left knee pain -x ray shows nothing acute *homelessness -CM involved *DVT prophylaxis: heparin sq *Plan: blood transfusion, recheck h and h in a.m. Subjective: Peri said the swelling in his legs is uncomfortable, left leg is worse. Objective: Vital Signs Temp Pulse Resp BP Pulse Ox 37.1 C 68 16 117/74 92 01/24/18 12:58 01/24/18 12:58 01/24/18 12:58 01/24/18 12:58 01/24/18 12:58 Microbiology 01/16/18 11:45 Gram Stain - Final Foot - Bone Anaerobic Culture - Final Laboratory Results 01/24/18 04:34 01/24/18 04:34 01/23/18 01/24/18 01/25/18 05:59 05:59 05:59 Intake Total 450 1300 50 Output Total 500 375 Balance -50 925 50 PT 15.5 SEC (12.0-15.0) H 01/22/18 13:10 INR 1.21 (0.83-1.16) H 01/22/18 13:10 - Physical Exam Constitutional: appears nourished, not in pain, chronically ill appearing Eyes: PERRL Ears, Nose, Mouth, Throat: hearing normal Cardiovascular: regular rate and rhythym, edema (bilateral lower ext edema) Respiratory: no respiratory distress, reduced air movement Skin: warm Musculoskeletal: generalized weakness Neurologic: AAOx3 Psychiatric: interacting appropriately, not anxious ICD10 Worksheet Patient Problems: Problems Problem Status Onset Diabetic infection of right foot Acute
[2018-01-24] MEDS: INSULIN GLARGINE 100 UNITS/ML UNIT SC SCH (21:48)
[2018-01-25] MEDS: traMADol 50 MG TAB PO PRN ×2 (00:21→19:19)
[2018-01-25] MEDS: HEPARIN 5,000 UNIT/0.5 ML INJ SC SCH ×3 (00:21→16:43)
[2018-01-25 04:17] LABS: PLATELET COUNT 337 10^3/uL (150-400)
--- NOTE | 2018-01-25 09:04 | SOAPPROG ---
SOAP Progress Note Assessment/Plan: Assessment/Plan: 57 y/o homeless male with PMH DM, PVD who presented with foot cellulitis and now has oliguric DIANNE requiring HD. Etiology likely ATN in the setting of DM CKD however may be PIGN or alternate cause requiring biopsy. DIANNE: - baseline Cr 1.2 on presentation - active urine sediment with Cr >4 - s/p HD on 01/23, 01/24, hold HD today - will continue to assess for HD and likely tomorrow - monitor accurate I/Os, still oliguric - reportedly had NSAIDs however can only find low dose ASA and Tramadol in [facility] , patient states he took a couple of Tylenol - will make NPO at midnight and ordered biopsy (INR 1.2) - Serological workup pending, mildly low C3 - Keep MAP>65, avoid contrast and monitor vanc troughs for goal 15-25 Anemia: Hgb down to 6.4 yesterday, s/p 1U pRBCs now >7. Continue to monitor. Metabolic acidosis: Improved with HD. Sodium bicarb on hold. HTN/vol: BP's at goal. UF with HD yesterday. WHITNEY: Phos improving with HD. Renal diet. 01/25/18 09:39 Subjective: Patient requesting dialysis today due to volume overload on legs. Breathing stable. Objective: Vital Signs Temp Pulse Resp BP Pulse Ox 36.9 C 60 16 124/65 H 97 01/25/18 07:45 01/25/18 07:45 01/25/18 07:45 01/25/18 07:45 01/25/18 07:45 Microbiology 01/16/18 11:45 Gram Stain - Final Foot - Bone Anaerobic Culture - Final Laboratory Results 01/25/18 04:10 01/25/18 04:10 01/24/18 01/25/18 01/26/18 05:59 05:59 05:59 Intake Total 1300 1400 Output Total 375 100 Balance 925 1300 PT 15.5 SEC (12.0-15.0) H 01/22/18 13:10 INR 1.21 (0.83-1.16) H 01/22/18 13:10 Physical Exam - Physical Exam General Appearance: WD/WN, mild distress, obese EENT: PERRL/EOMI Neck: non-tender, full range of motion, supple Respiratory: decreased breath sounds, crackles Cardiac/Chest: regular rate, rhythm, edema Abdomen: normal bowel sounds, non-tender, distended Skin: pallor Extremities: normal range of motion, swelling, other (L toe amputation) Neuro/Psych: no motor/sensory deficits, oriented x 3 ICD10 Worksheet Patient Problems: Problems Problem Status Onset Diabetic infection of right foot Acute
[2018-01-25] MEDS: INSULIN LISPRO 100 UNIT/ML SC SCH ×3 (09:09→17:22)
[2018-01-25] MEDS: CALCIUM CARBONATE 500 MG CHEWABLE TAB PO SCH ×3 (09:46→21:05)
[2018-01-25] MEDS: BISOPROLOL FUMARATE 5 MG TAB PO SCH (09:48)
[2018-01-25] MEDS: CHOLECALCIFEROL VIT D3 1,000 UNITS TAB PO SCH (09:48)
--- NOTE | 2018-01-25 12:21 | ASMTCMCOM ---
CM Note CM Note Notes: CM spoke to Laurie Hastings NP regarding d/c POC. Updates sent to [facility]. CM left a msg for Nataliia Coto at [facility] (P#: [phone]). JONATHON also spoke to Randy on the phone and provided him w/ Nataliia's phone number. CM to follow. Plan: [facility] Date Signed: 01/25/2018 12:21 PM Electronically Signed By:EARL Casillas
--- NOTE | 2018-01-25 15:26 | HOSPPROG ---
Hospitalist Progress Note Assessment/Plan: Peri Londono is a 57 y/o male w diabetes who presented to the ER with a foot infection. 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 -+ MRSA, group a strep, Alcaligenes in the tissue culture -status post transmetatarsal amputation and tendon release -wound vac off -Vancomycin on hold, elevated trough *YUDY -temp HD cath placed, neck area -HD tomorrow -oliguric -hold vanco -heparin sq -biopsy tomorrow -appreciate nephrology *anemia -received a unit of prbc on 01/24 -will likely need another unit if cont to keep trending down *Metabolic Acidosis -sodium bicarb tabs dc -this has improved w Dialysis *recent hx of c difficile -was treated w oral vanco as suppressive therapy while on abx -this has been dc due to the ARF *IDDM -sliding scale and home regimen *hypocalcemia wit elevated PTH -likely due to low Vitamin D levels, will add daily vitamin D -calcium protocol -will need this f/u in OP setting *left knee pain -x ray shows nothing acute *homelessness -CM involved *DVT prophylaxis: heparin sq (on HOLD tomorrow for biopsy) *Plan: dialysis tomorrow, renal biopsy tomorrow.. Very concerned Peri is getting more depressed daily, will ask Jelly Renee to see. She may have some input on how to support Peri. Subjective: Peri is withdrawn, says everything is 'just fine'. He is concerned about how swollen his legs are. Objective: Vital Signs Temp Pulse Resp BP Pulse Ox 37.7 C 61 16 142/77 H 90 L 01/25/18 15:20 01/25/18 15:20 01/25/18 15:20 01/25/18 15:20 01/25/18 15:20 Microbiology 01/16/18 11:45 Gram Stain - Final Foot - Bone Anaerobic Culture - Final Laboratory Results 01/25/18 04:10 01/25/18 04:10 01/24/18 01/25/18 01/26/18 05:59 05:59 05:59 Intake Total 1300 1400 Output Total 375 100 Balance 925 1300 PT 15.5 SEC (12.0-15.0) H 01/22/18 13:10 INR 1.21 (0.83-1.16) H 01/22/18 13:10 - Physical Exam Constitutional: chronically ill appearing Eyes: PERRL Ears, Nose, Mouth, Throat: hearing normal Respiratory: no respiratory distress Skin: other (both lower ext quite swollen) Musculoskeletal: generalized weakness Neurologic: AAOx3 Psychiatric: not encephalopathic, depressed, flat affect ICD10 Worksheet Patient Problems: Problems Problem Status Onset Diabetic infection of right foot Acute
--- NOTE | 2018-01-25 17:00 | SOAPPROG ---
SOAP Progress Note Assessment/Plan: Assessment/Plan: 57-year-old man status post right transmetatarsal amputation with Achilles release Silver dressing in place - change PRN saturation Postoperative boot when ambulating Physical therapy and occupational therapy Comorbidities per hospitalists/nephrology S: No complaints this am but not very forthcoming with information. yes or no answers O: sitting up at edge of bed, no acute distress, comfortable No increased work of breathing Silver surgical dressing in place with some staining. No evidence of surrounding erythema. Notrees edema bilaterally - consider compression since DVT ruled out 01/25/18 17:01 Objective: Vital Signs Temp Pulse Resp BP Pulse Ox 37.7 C 61 16 142/77 H 90 L 01/25/18 15:20 01/25/18 15:20 01/25/18 15:20 01/25/18 15:20 01/25/18 15:20 Microbiology 01/16/18 11:45 Gram Stain - Final Foot - Bone Anaerobic Culture - Final Laboratory Results 01/25/18 04:10 01/25/18 04:10 01/24/18 01/25/18 01/26/18 05:59 05:59 05:59 Intake Total 1300 1400 Output Total 375 100 Balance 925 1300 PT 15.5 SEC (12.0-15.0) H 01/22/18 13:10 INR 1.21 (0.83-1.16) H 01/22/18 13:10 ICD10 Worksheet Patient Problems: Problems Problem Status Onset Diabetic infection of right foot Acute
[2018-01-25] MEDS: INSULIN GLARGINE 100 UNITS/ML UNIT SC SCH (21:04)
[2018-01-26] MEDS: HEPARIN 5,000 UNIT/0.5 ML INJ SC SCH (00:29)
[2018-01-26] MEDS: traMADol 50 MG TAB PO PRN ×2 (04:57→20:24)
[2018-01-26 05:19] LABS: PLATELET COUNT 343 10^3/uL (150-400)
[2018-01-26] MEDS ORDERED: HEPARIN 10,000 UNIT/10 ML MDV (1,000 UNIT/ML) IVP PRN (08:29)
[2018-01-26] MEDS ORDERED: GLUCAGON HCL 1 MG VIAL IVP PRN (08:29)
[2018-01-26] MEDS ORDERED: NALOXONE HCL 0.4 MG/ML INJ IVP PRN (08:29)
[2018-01-26] MEDS ORDERED: fentaNYL 100 MCG/2 ML INJ IVP PRN (08:29)
[2018-01-26] MEDS ORDERED: MEPERIDINE 25 MG/ML SYR IVP PRN (08:29)
[2018-01-26] MEDS ORDERED: FLUMAZENIL 0.5 MG/5 ML MDV IVP PRN (08:29)
[2018-01-26] MEDS ORDERED: PROTAMINE SULFATE 50 MG/5 ML VIAL IVP PRN (08:29)
[2018-01-26] MEDS ORDERED: hydrALAZINE 20 MG/ML VIAL IVP PRN (08:29)
[2018-01-26] MEDS ORDERED: MIDAZOLAM 2 MG/2 ML VIAL IVP PRN (08:29)
[2018-01-26] MEDS ORDERED: ALTEPLASE 2 MG VIAL IVP PRN (08:29)
[2018-01-26] MEDS ORDERED: NS 1,000 ML IV SCH (08:30)
[2018-01-26] MEDS ORDERED: LIDOCAINE 1% 300 MG/30 ML SDV ONE (09:12)
--- NOTE | 2018-01-26 09:15 | SOAPPROG ---
SOAP Progress Note Assessment/Plan: Assessment/Plan: 57 y/o homeless male with PMH DM, PVD who presented with foot cellulitis and now has oliguric DIANNE requiring HD. Etiology likely ATN in the setting of DM CKD however may be PIGN or alternate cause requiring biopsy. DIANNE: - baseline Cr 1.2 on presentation - active urine sediment with Cr >4 still not getting clearance - s/p HD on 01/23, 01/24, will do HD today - will continue to assess for HD and likely will need TDC - monitor accurate I/Os, still oliguric - renal biopsy 11:30am - will make NPO at midnight and ordered biopsy (INR 1.2) - Serological workup pending, mildly low C3 - Keep MAP>65, avoid contrast and monitor vanc troughs for goal 15-25 Anemia: Hgb down to 6.4 yesterday, s/p 1U pRBCs now >7. Continue to monitor. Metabolic acidosis: Improved with HD. Sodium bicarb on hold. HTN/vol: BP's at goal. UF with HD yesterday. WHITNEY: Phos >7. Will start binder. Renal diet. 01/26/18 10:10 Subjective: Patient frustrated with fluid on thighs. Wants dialysis. Aware of biopsy today. Objective: Vital Signs Temp Pulse Resp BP Pulse Ox 36.8 C 59 L 16 135/68 H 96 01/26/18 08:00 01/26/18 08:00 01/26/18 08:00 01/26/18 08:00 01/26/18 08:00 Laboratory Results 01/26/18 04:55 01/26/18 04:55 01/25/18 01/26/18 01/27/18 05:59 05:59 05:59 Intake Total 1400 1250 Output Total 100 100 Balance 1300 1150 PT 15.5 SEC (12.0-15.0) H 01/22/18 13:10 INR 1.21 (0.83-1.16) H 01/22/18 13:10 Physical Exam - Physical Exam General Appearance: WD/WN, mild distress EENT: PERRL/EOMI Neck: non-tender, full range of motion, supple Respiratory: lungs clear, normal breath sounds Cardiac/Chest: normal peripheral pulses, regular rate, rhythm, edema Abdomen: normal bowel sounds, non-tender, distended Skin: pallor Extremities: normal range of motion, pedal edema, swelling Neuro/Psych: no motor/sensory deficits, alert ICD10 Worksheet Patient Problems: Problems Problem Status Onset Diabetic infection of right foot Acute
[2018-01-26] MEDS: INSULIN LISPRO 100 UNIT/ML SC SCH ×3 (09:55→17:46)
[2018-01-26] MEDS: BISOPROLOL FUMARATE 5 MG TAB PO SCH (09:56)
[2018-01-26] MEDS: CALCIUM CARBONATE 500 MG CHEWABLE TAB PO SCH ×3 (09:56→22:08)
[2018-01-26] MEDS: CHOLECALCIFEROL VIT D3 1,000 UNITS TAB PO SCH (09:56)
--- NOTE | 2018-01-26 10:57 | SOAPPROG ---
SOAP Progress Note Assessment/Plan: Assessment: Mr. Whitt had his eyes closed today and just waved at me as I asked questions. He is on his way out of the room. I will assess wound tomorrow. Glad that path is negative Plan: 01/26/18 10:56 Objective: Vital Signs Temp Pulse Resp BP Pulse Ox 36.8 C 59 L 16 154/84 H 100 01/26/18 08:00 01/26/18 08:00 01/26/18 08:00 01/26/18 10:16 01/26/18 10:16 Laboratory Results 01/26/18 04:55 01/26/18 04:55 01/25/18 01/26/18 01/27/18 05:59 05:59 05:59 Intake Total 1400 1250 Output Total 100 100 Balance 1300 1150 PT 15.5 SEC (12.0-15.0) H 01/22/18 13:10 INR 1.21 (0.83-1.16) H 01/22/18 13:10 ICD10 Worksheet Patient Problems: Problems Problem Status Onset Diabetic infection of right foot Acute
--- NOTE | 2018-01-26 11:06 | PDRADPN ---
Radiology Procedure Note Date of Procedure: 01/26/18 Radiologist: Charly Milan Anesthesia: IV Sedation Pre-op Diagnosis: renal failure Post-op Diagnosis: same Procedure: CT guided renal biopsy Inf/Abcess present in the surg proc area at time of surgery?: No
--- NOTE | 2018-01-26 11:06 | PDPROPOC ---
Sedation Plan of Care ASA Classification: ASA 3 Mallampati Score: Class 2 Mallampati Reference Image:
--- NOTE | 2018-01-26 22:00 | HOSPPROG ---
Hospitalist Progress Note Assessment/Plan: Assessment: 57 y/o male p/w polymicrobial foot infection/osteomyelitis c/b ATN Plan: *Suspected acute diastolic CHF exacerbation. New problem to this provider, further w/u indicated. Evidenced by net positive 18kg LOS, visible volume overload, 3-5LPM o2 requirement -check CXR, BNP, will consider echo -fluid removal in dialysis today *Diabetic foot infection (has chronic right foot ulcer) c/b acute osteomyelitis of 3rd metatarsal. POA, 2/2 poor outpt self/wound care -+ MRSA, group a strep, Alcaligenes in the tissue culture -d/w Dr. Ramesh Egan, he reports no additional Abx indicated status post curative transmetatarsal amputation and tendon release -wound vac off *ATN. Oliguric, requiring HD today -biopsy today w/o complication -appreciate nephrology consultation, will need to determine outpt HD options, particularly if patient is being considered for SNF *Anemia. Likely 2/2 renal failure, potentially exacerbated by renal biopsy w/ blood loos -s/p PRBC 01/24, recheck Hgb now post biopsy and transfuse if downtrending *Metabolic Acidosis. Acute, 2/2 renal failure -improving w/ HD *recent hx of c difficile -was treated w oral vanco as suppressive therapy while on abx -this has been dc due to the ARF *IDDM -sliding scale and home regimen *hypocalcemia wit elevated PTH -likely due to low Vitamin D levels, added daily vitamin D -initiate PO calcium -will need this f/u in OP setting Diet. Renal PPx. Hep SC restart tomorrow if no bleed, SCDs today Code. Full Dispo. ADD uncertain, anticipate SNF needs High level of medical complexity, high risk worsening morbidity/mortality Subjective: Provider: "How are you today?". Mr. Londono: "I'm a mushroom!". Provider: "Literally or figuratively?". Mr. Londono: "Both.". Denies any pain, reports diffuse body swelling, appears apprehensive of exam Objective: Vital Signs Temp Pulse Resp BP Pulse Ox 37.1 C 73 17 144/67 H 90 L 01/26/18 20:00 01/26/18 20:00 01/26/18 20:00 01/26/18 20:00 01/26/18 20:00 Laboratory Results 01/26/18 15:15 01/26/18 04:55 01/25/18 01/26/18 01/27/18 05:59 05:59 05:59 Intake Total 1400 1250 1098 Output Total 100 100 300 Balance 1300 1150 798 PT 15.5 SEC (12.0-15.0) H 01/22/18 13:10 INR 1.21 (0.83-1.16) H 01/22/18 13:10 - Physical Exam Constitutional: not in pain, chronically ill appearing, obese, unkempt, No uncomfortable Cardiovascular: systolic murmur (I/IV at all valves), edema (2+ bilt LE), No irregularly irregular, No tachycardia Respiratory: reduced air movement (bilat bases), inspiratory crackles, bronchial breath sounds, No expiratory wheeze Gastrointestinal: normoactive bowel sounds, soft, non-tender abdomen, no palpable masses Skin: erythema (at PICC site) Neurologic: AAOx3 Psychiatric: not anxious, flat affect, other (non-linear thought process, limited participation in exam, withdrawn), No agitated ICD10 Worksheet Patient Problems: Problems Problem Status Onset Diabetic infection of right foot Acute
[2018-01-26] MEDS: INSULIN GLARGINE 100 UNITS/ML UNIT SC SCH (22:08)
[2018-01-26] MEDS: ACETAMINOPHEN 325 MG TAB PO PRN (23:09)
[2018-01-27 05:06] LABS: PLATELET COUNT 278 10^3/uL (150-400)
[2018-01-27] MEDS: INSULIN LISPRO 100 UNIT/ML SC SCH ×2 (09:23→18:04)
[2018-01-27] MEDS: traMADol 50 MG TAB PO PRN (09:58)
[2018-01-27] MEDS: BISOPROLOL FUMARATE 5 MG TAB PO SCH (09:59)
[2018-01-27] MEDS: CALCIUM CARBONATE 500 MG CHEWABLE TAB PO SCH ×3 (10:00→21:18)
[2018-01-27] MEDS: CHOLECALCIFEROL VIT D3 1,000 UNITS TAB PO SCH (10:01)
[2018-01-27] MEDS: HEPARIN 5,000 UNIT/0.5 ML INJ SC SCH (10:01)
--- NOTE | 2018-01-27 10:07 | SOAPPROG ---
SOAP Progress Note Assessment/Plan: Assessment/Plan: DIANNE: Cr was 1.2 on presentation, devloped oliguric DIANNE in setting of low urine sodium, hematuria and pyuria, could have an infectious GN. - HD done Wednesday, Wednesday and Wednesday. - Will plan on HD again tomorrow. - Renal biopsy done yesterday, awaiting results either late today or tomorrow. - Will continue to monitor for renal recovery. - Avoid hypotension and nephrotoxins. Anemia: Hgb down to 6.9 s/p biopsy, was transfused earlier this hospitalization. Will plan to transfuse 1 unit PRBCs tomorrow on HD. Hypervolemia: will modulate with fluid removal on HD. WHITNEY: Phos improving with HD, not yet on phos binder, will continue to monitor. HTN: BP ok on current meds, will continue to monitor. Subjective: No acute events overnight. Pt had HD yesterday, tolerated fine. He also had renal biopsy yesterday. He notes his breathing is somewhat improved, still has a lot of swelling in his legs. Pt is frustrated today. Objective: Vital Signs Temp Pulse Resp BP Pulse Ox 36.7 C 58 L 18 123/61 H 92 01/27/18 08:00 01/27/18 09:59 01/27/18 08:00 01/27/18 09:59 01/27/18 08:00 Laboratory Results 01/27/18 04:40 01/27/18 04:40 01/26/18 01/27/18 01/28/18 05:59 05:59 05:59 Intake Total 1250 1298 350 Output Total 100 300 Balance 1150 998 350 PT 15.5 SEC (12.0-15.0) H 01/22/18 13:10 INR 1.21 (0.83-1.16) H 01/22/18 13:10 General: alert and oriented, no acute distress Eyes: EOMI, PERRL OP: Clear CV: RRR Resp: nonlabored respirations on NC Abd: Soft NT Ext: +3 edema BLE Neuro: CN II-XII grossly intact, no asterixis Psych: cooperative Access: RIJ temp cath ICD10 Worksheet Patient Problems: Problems Problem Status Onset Diabetic infection of right foot Acute
--- NOTE | 2018-01-27 10:59 | SOAPPROG ---
SOAP Progress Note Assessment/Plan: Assessment: Mr. Whitt had his eyes closed today and just waved at me as I asked questions. He is on his way out of the room. I will assess wound tomorrow. Glad that path is negative Plan: 01/26/18 10:56 Objective: Vital Signs Temp Pulse Resp BP Pulse Ox 36.7 C 58 L 18 123/61 H 92 01/27/18 08:00 01/27/18 09:59 01/27/18 08:00 01/27/18 09:59 01/27/18 08:00 Laboratory Results 01/27/18 04:40 01/27/18 04:40 01/26/18 01/27/18 01/28/18 05:59 05:59 05:59 Intake Total 1250 1298 350 Output Total 100 300 Balance 1150 998 350 PT 15.5 SEC (12.0-15.0) H 01/22/18 13:10 INR 1.21 (0.83-1.16) H 01/22/18 13:10 ICD10 Worksheet Patient Problems: Problems Problem Status Onset Diabetic infection of right foot Acute
--- NOTE | 2018-01-27 11:40 | ASMTCMCOM ---
CM Note CM Note Notes: Spoke jammie/Randy at , they are able to accomodate pt needing outpt dialysis while he is rehabbing there. They are still waiting for the PASRR from [facility], Randy will let CM know when he has it. Also he is in contact with pt's LEVAR Rios from [facility] ([phone]). DC Plan: [facility] Date Signed: 01/27/2018 11:39 AM Electronically Signed By:Jelly Hernandez RN
--- NOTE | 2018-01-27 17:05 | HOSPPROG ---
Hospitalist Progress Note Assessment/Plan: Assessment: 57 y/o male p/w polymicrobial foot infection/osteomyelitis c/b ATN Plan: *Suspected acute diastolic CHF exacerbation. Evidenced by net positive 20kg LOS , visible volume overload, 3-5LPM o2 requirement, CXR w/ basilar opacities and small effusions (personally interpreted) and BNP 18,000 -fluid removal in dialysis tomorrow *Diabetic foot infection (has chronic right foot ulcer) c/b acute osteomyelitis of 3rd metatarsal. POA, 2/2 poor outpt self/wound care -+ MRSA, group a strep, Alcaligenes in the tissue culture -wound vac off -Vanc w/ tunneled cath tomorrow *ATN. Oliguric, has yet to experience renal recovery -biopsy results pending -will monitor for renal recovery as outpt w/ scheduled outpt HD -d/w Drs. Jacinto and Beatriz, they recommend tunneled cath which will be placed tomorrow *Anemia. Likely 2/2 renal failure -transfuse w/ HD tomorrow *Metabolic Acidosis. Acute, 2/2 renal failure -improving w/ HD *recent hx of c difficile -was treated w oral vanco as suppressive therapy while on abx -this has been dc due to the ARF *IDDM -sliding scale and lantus 10 *hypocalcemia wit elevated PTH -likely due to low Vitamin D levels, added daily vitamin D -initiate PO calcium -will need this f/u in OP setting Diet. Renal PPx. Hep SC held pre-cath placement Code. Full Dispo. ADD uncertain, anticipate SNF needs, [facility] pending and [facility], outpt HD arranged by case mgmt High level of medical complexity, high risk worsening morbidity/mortality Subjective: patient reports fatigue s/p PT Objective: Vital Signs Temp Pulse Resp BP Pulse Ox 37.1 C 55 L 18 141/71 H 100 01/27/18 15:55 01/27/18 15:55 01/27/18 15:55 01/27/18 15:55 01/27/18 15:55 Laboratory Results 01/27/18 04:40 01/27/18 04:40 01/26/18 01/27/18 01/28/18 05:59 05:59 05:59 Intake Total 1250 1298 1416 Output Total 100 300 100 Balance 3932 424 4454 PT 15.5 SEC (12.0-15.0) H 01/22/18 13:10 INR 1.21 (0.83-1.16) H 01/22/18 13:10 - Physical Exam Constitutional: no apparent distress, not in pain, chronically ill appearing, uncomfortable, unkempt Cardiovascular: systolic murmur (II/ at sternum and apex), edema (2+ bilat LE) , No irregularly irregular, No tachycardia Respiratory: reduced air movement (bilat bases), inspiratory crackles (bilat bases), No expiratory wheeze, No bronchial breath sounds, No respiratory distress Gastrointestinal: normoactive bowel sounds, soft, non-tender abdomen, no palpable masses, No distension Skin: other (no erythema around PICC/IJ) Neurologic: AAOx3 Psychiatric: interacting appropriately, not anxious, not encephalopathic, thought process linear, flat affect ICD10 Worksheet Patient Problems: Problems Problem Status Onset Diabetic infection of right foot Acute
[2018-01-27] MEDS: INSULIN GLARGINE 100 UNITS/ML UNIT SC SCH (21:18)
[2018-01-28] MEDS: traMADol 50 MG TAB PO PRN ×2 (02:24→20:39)
[2018-01-28 04:28] LABS: PLATELET COUNT 262 10^3/uL (150-400)
--- NOTE | 2018-01-28 09:21 | SOAPPROG ---
SOAP Progress Note Assessment/Plan: Assessment: saw moises during dialysis. Discussed need for tunnelled catheter. He did not have any questions Plan: 01/26/18 10:56 01/28/18 09:21 Objective: Vital Signs Temp Pulse Resp BP Pulse Ox 37.1 C 65 16 127/66 H 93 01/28/18 07:33 01/28/18 07:33 01/28/18 07:33 01/28/18 07:33 01/28/18 07:33 Laboratory Results 01/28/18 04:10 01/28/18 04:10 01/27/18 01/28/18 01/29/18 05:59 05:59 05:59 Intake Total 1298 1746 Output Total 300 125 Balance 998 1621 PT 15.5 SEC (12.0-15.0) H 01/22/18 13:10 INR 1.21 (0.83-1.16) H 01/22/18 13:10 ICD10 Worksheet Patient Problems: Problems Problem Status Onset Diabetic infection of right foot Acute
--- NOTE | 2018-01-28 10:24 | SOAPPROG ---
SOAP Progress Note Assessment/Plan: Assessment/Plan: DIANNE: Cr was 1.2 on presentation, developed oliguric DIANNE in setting of low urine sodium, hematuria and pyuria. 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 - HD done Wednesday, Wednesday and Wednesday. - Pt seen on HD again today. - Expect renal recovery and to come off HD at some time, but for now pt is still oliguric and dialysis dependent. - Pt getting tunneled catheter today. - Will continue to monitor for renal recovery. - Avoid hypotension and nephrotoxins. Anemia: Hgb down to 6.9 s/p biopsy, was transfused earlier this hospitalization. Will transfuse 1 unit PRBCs today on HD. Hypervolemia: will modulate with fluid removal on HD. WHITNEY: Phos improving with HD, not yet on phos binder, will continue to monitor. HTN: BP ok on current meds, will continue to monitor. Subjective: No acute events overnight. Pt states he feels his breathing is short. Pt is on dialysis and otherwise is tolerating fine. Objective: Vital Signs Temp Pulse Resp BP Pulse Ox 37.1 C 65 16 127/66 H 93 01/28/18 07:33 01/28/18 07:33 01/28/18 07:33 01/28/18 07:33 01/28/18 07:33 Laboratory Results 01/28/18 04:10 01/28/18 04:10 01/27/18 01/28/18 01/29/18 05:59 05:59 05:59 Intake Total 1298 1746 Output Total 300 125 Balance 998 1621 PT 15.5 SEC (12.0-15.0) H 01/22/18 13:10 INR 1.21 (0.83-1.16) H 01/22/18 13:10 General: alert and oriented, no acute distress Eyes: EOMI, pERRL OP: Clear CV: RRR Resp: nonlabored respirations on NC Abd: Soft, NT Ext: +2 edema BLE Neuro; CN II-XII grossly intact ICD10 Worksheet Patient Problems: Problems Problem Status Onset Diabetic infection of right foot Acute
[2018-01-28] MEDS ORDERED: VANCOMYCIN HCL/NORMAL SALINE 250 ML IV ONE (12:00)
[2018-01-28] MEDS ORDERED: VANCOMYCIN 1 GM in NS 250 ML IV ONE (12:00)
[2018-01-28] MEDS ORDERED: BACITRACIN ZINC 14.2 GM OINTTUBE TP ONE (12:03)
[2018-01-28] MEDS ORDERED: LIDOCAINE 1% 300 MG/30 ML SDV ONE (12:04)
[2018-01-28] MEDS ORDERED: BUPIVACAINE 0.5% 30 ML SDV ONE (12:04)
[2018-01-28] MEDS ORDERED: HEPARIN 5,000 UNIT/0.5 ML INJ ONE (12:04)
[2018-01-28] MEDS ORDERED: NS 1,000 ML IV ONE (12:42)
--- NOTE | 2018-01-28 12:52 | PDANEPAE ---
ANE History of Present Illness here for HD cath ANE Past Medical History - Cardiovascular History Hx Hypertension: Yes Hx Arrhythmias: No Hx Chest Pain: No Cardiovascular History Comment: CHF - Pulmonary History Hx COPD: No Hx Asthma/Reactive Airway Disease: No Hx Recent Upper Respiratory Infection: No Hx Oxygen in Use at Home: No Hx Sleep Apnea: No Sleep Apnea Screening Result - Last Documented: Negative - Endocrine History Hx Diabetes: Yes Obesity: yes, moderate - Renal History Hx Renal Disorders: Yes Renal History Comment: ATN req HD - Chronic Pain History Chronic Pain: No ANE Review of Systems Review of systems is: negative Review of Systems: - Exercise capacity Exercise capacity: <4 METS ANE Patient History - Allergies Allergies/Adverse Reactions: Penicillins Allergy (Severe, Verified 01/14/18 16:40) cant breathe - Home Medications Home Medications: Bisoprolol Fumarate [Zebeta (*)] 10 mg PO DAILY 12/25/17 [Last Taken Unknown] Aspirin [Aspirin 81mg (*)] 81 mg PO DAILY 01/14/18 [Last Taken 01/14/18] Insulin Lispro [Humalog] 1 - 6 unit SQ TIDMEAL 01/14/18 [Last Taken Unknown] Insulin Detemir [Levemir] 10 unit SQ HS 01/17/18 [Last Taken Unknown] Simvastatin [Zocor] 10 mg PO DAILY 01/17/18 [Last Taken Unknown] metFORMIN HCL [Glucophage 1000 mg] 1,000 mg PO BIDMEAL 01/17/18 [Last Taken Unknown] - NPO status NPO Since - Liquids (Date): 01/16/18 NPO Since - Liquids (Time): 07:00 NPO Since - Solids (Date): 01/16/18 NPO Since - Solids (Time): 00:00 - Smoking Hx Smoking Status: Never smoked ANE Labs/Vital Signs - Labs Result Diagrams: 01/28/18 04:10 01/28/18 04:10 - Vital Signs Blood Pressure: 118/55 Heart Rate: 60 Respiratory Rate: 16 O2 Sat (%): 99 Height: 173.99 cm Weight: 113.5 kg ANE Physical Exam - Airway Neck exam: FROM ANE Anesthesia Plan Anesthesia Plan: GA w LMA
--- NOTE | 2018-01-28 12:57 | PDANEPAE ---
ANE History of Present Illness here for HD cath ANE Past Medical History - Cardiovascular History Hx Hypertension: Yes Hx Arrhythmias: No Hx Chest Pain: No Cardiovascular History Comment: CHF - Pulmonary History Hx COPD: No Hx Asthma/Reactive Airway Disease: No Hx Recent Upper Respiratory Infection: No Hx Oxygen in Use at Home: No Hx Sleep Apnea: No Sleep Apnea Screening Result - Last Documented: Negative - Endocrine History Hx Diabetes: Yes Obesity: yes, moderate - Renal History Hx Renal Disorders: Yes Renal History Comment: ATN req HD - Chronic Pain History Chronic Pain: No ANE Review of Systems Review of systems is: negative Review of Systems: - Exercise capacity Exercise capacity: <4 METS ANE Patient History - Allergies Allergies/Adverse Reactions: Penicillins Allergy (Severe, Verified 01/14/18 16:40) cant breathe - Home Medications Home Medications: Bisoprolol Fumarate [Zebeta (*)] 10 mg PO DAILY 12/25/17 [Last Taken Unknown] Aspirin [Aspirin 81mg (*)] 81 mg PO DAILY 01/14/18 [Last Taken 01/14/18] Insulin Lispro [Humalog] 1 - 6 unit SQ TIDMEAL 01/14/18 [Last Taken Unknown] Insulin Detemir [Levemir] 10 unit SQ HS 01/17/18 [Last Taken Unknown] Simvastatin [Zocor] 10 mg PO DAILY 01/17/18 [Last Taken Unknown] metFORMIN HCL [Glucophage 1000 mg] 1,000 mg PO BIDMEAL 01/17/18 [Last Taken Unknown] - NPO status NPO Since - Liquids (Date): 01/16/18 NPO Since - Liquids (Time): 07:00 NPO Since - Solids (Date): 01/16/18 NPO Since - Solids (Time): 00:00 - Smoking Hx Smoking Status: Never smoked ANE Labs/Vital Signs - Labs Result Diagrams: 01/28/18 04:10 01/28/18 04:10 - Vital Signs Blood Pressure: 118/55 Heart Rate: 60 Respiratory Rate: 16 O2 Sat (%): 99 Height: 173.99 cm Weight: 113.5 kg ANE Physical Exam - Airway Neck exam: FROM Mallampati Score: Class 2 Mouth exam: poor dentition, stack - Pulmonary Pulmonary: no respiratory distress - Cardiovascular Cardiovascular: regular rate and rhythym - ASA Status ASA Status: III ANE Anesthesia Plan Anesthesia Plan: GA w LMA
[2018-01-28] MEDS ORDERED: fentaNYL 100 MCG/2 ML INJ ONE (13:14)
[2018-01-28] MEDS ORDERED: PROPOFOL/EMULSION 500 MG/50 ML BOTTLE IV ONE (13:16)
--- NOTE | 2018-01-28 14:27 | POSTOPPROG ---
Post Op Note Date of Operation: 01/28/18 Surgeon: Adenike Jacinto Anesthesiologist: francisco Anesthesia: GET(General Endotracheal) Pre-op Diagnosis: renal insufficiency Post-op Diagnosis: same Indication: 57 yo with dialysis Procedure: tunneled dialysis catheter R IJ Inf/Abcess present in the surg proc area at time of surgery?: No EBL: 50-100 Specimen(s): none
--- NOTE | 2018-01-28 14:47 | POSTANESTH ---
Post Anesthetic Evaluation Cardiovascular Status: Normal, Stable Respiratory Status: Normal, Stable Level of Consciousness/Mental Status: Mildly Sleepy, Arousable Pain Control: Adequate, Prn Tx Ordered Nausea/Vomiting Control: Adequate, Prn Tx Ordered Complications Possibly Related to Anesthesia: None Noted
[2018-01-28] MEDS ORDERED: ALBUTEROL 3 ML DEYVIAL IH PRN (15:02)
[2018-01-28] MEDS ORDERED: fentaNYL 100 MCG/2 ML INJ IVP PRN (15:02)
[2018-01-28] MEDS ORDERED: NALOXONE HCL 0.4 MG/ML INJ IVP PRN (15:02)
[2018-01-28] MEDS ORDERED: ONDANSETRON 4 MG/2 ML VIAL IVP PRN (15:02)
[2018-01-28] MEDS: INSULIN LISPRO 100 UNIT/ML SC SCH ×3 (15:51→16:59)
[2018-01-28] MEDS: CHOLECALCIFEROL VIT D3 1,000 UNITS TAB PO SCH (15:52)
[2018-01-28] MEDS: CALCIUM CARBONATE 500 MG CHEWABLE TAB PO SCH ×3 (15:52→22:03)
[2018-01-28] MEDS: BISOPROLOL FUMARATE 5 MG TAB PO SCH (15:52)
--- NOTE | 2018-01-28 17:22 | ASMTCMCOM ---
CM Note CM Note Notes: Spoke w/MD, pt will need to be set up with [facility], CM called [facility] and they will not be able to accomodate pt until Wednesday. CM to fax paperwork over so they can start working on it Wednesday. DC Plan: / [facility] + [facility] outpt dialysis Date Signed: 01/28/2018 05:21 PM Electronically Signed By:Jelly Hernandez RN
[2018-01-28] MEDS ORDERED: HEPARIN 50,000 UNIT/10 ML VIAL ONE (18:09)
--- NOTE | 2018-01-28 21:06 | HOSPPROG ---
Hospitalist Progress Note Assessment/Plan: Assessment: 57 y/o male p/w polymicrobial foot infection/osteomyelitis c/b ATN and dCHF Plan: *Suspected acute diastolic CHF exacerbation. Evidenced by net positive 16kg LOS , visible volume overload, 5LPM o2 requirement, CXR w/ ongoing basilar opacities and small effusions (personally interpreted) and BNP 18,000 -fluid removal in dialysis today approx 3L -ongong fluid removal at outpt HD *Diabetic foot infection (has chronic right foot ulcer) c/b acute osteomyelitis of 3rd metatarsal. POA, 2/2 poor outpt self/wound care -+ MRSA, group a strep, Alcaligenes in the tissue culture -wound vac off *ATN. Oliguric, unclear if 2/2 infectious RPGN, has yet to experience renal recovery -biopsy results pending -d/w Dr. Henderson, she and case mgmt coordinating outpt HD at [facility] -d/w Dr. Jacinto, she is placing tunneled cath today *Anemia. Likely 2/2 renal failure -transfuse w/ HD today *Metabolic Acidosis. Acute, 2/2 renal failure -improving w/ HD *recent hx of c difficile -was treated w oral vanco as suppressive therapy while on abx -this has been dc due to the ARF *IDDM -sliding scale and lantus 10 *hypocalcemia wit elevated PTH -likely due to low Vitamin D levels, added daily vitamin D -initiate PO calcium -will need this f/u in OP setting *mental health disorder. Patient definitely has an underlying psych diagnosis, but the exact diagnosis is unclear, as he does not have prior records at our hospital and is not on any Rx which would indicate the specific nature -patient endorses that he gets his meds from [facility], so he is an established client -currently not destabilized, has unusual affect/verbal expressions, but no psychosis Diet. Renal PPx. Hep SC Code. Full Dispo. ADD 01/29 to [place] [facility] if no complications s/p cath today High level of medical complexity, high risk worsening morbidity/mortality Subjective: "I'm doing better than most, but I don't want to brag about it"; making small amounts of urine, no sx w/ HD Objective: Vital Signs Temp Pulse Resp BP Pulse Ox 36.9 C 71 16 126/65 H 96 01/28/18 19:22 01/28/18 19:22 01/28/18 19:22 01/28/18 19:22 01/28/18 19:22 Laboratory Results 01/28/18 04:10 01/28/18 04:10 01/27/18 01/28/18 01/29/18 05:59 05:59 05:59 Intake Total 1298 1746 770 Output Total 175 042 4541 Balance 998 1621 -3250 PT 15.5 SEC (12.0-15.0) H 01/22/18 13:10 INR 1.21 (0.83-1.16) H 01/22/18 13:10 - Pending Discharge Pending Discharge Within 24 Hours: Yes Pending Discharge Date: 01/29/18 Pending Discharge Time: 11:00 - Physical Exam Constitutional: no apparent distress, not in pain, chronically ill appearing, No uncomfortable Cardiovascular: systolic murmur (II/ at all valves), JVD, edema (2+ bilat LE) , No irregularly irregular, No tachycardia Respiratory: reduced air movement (bilat bases), inspiratory crackles, No expiratory wheeze, No bronchial breath sounds, No respiratory distress Gastrointestinal: normoactive bowel sounds, soft, non-tender abdomen, no palpable masses Neurologic: AAOx3 Psychiatric: not anxious, flat affect, other (unusual but linear verbal responses to questions), No agitated ICD10 Worksheet Patient Problems: Problems Problem Status Onset Diabetic infection of right foot Acute
[2018-01-28] MEDS: INSULIN GLARGINE 100 UNITS/ML UNIT SC SCH (22:03)
[2018-01-29] MEDS: HEPARIN 5,000 UNIT/0.5 ML INJ SC SCH ×3 (00:58→16:29)
[2018-01-29] MEDS: traMADol 50 MG TAB PO PRN ×2 (02:32→18:21)
[2018-01-29 04:33] LABS: PLATELET COUNT 246 10^3/uL (150-400)
[2018-01-29] MEDS: CHOLECALCIFEROL VIT D3 1,000 UNITS TAB PO SCH (08:48)
[2018-01-29] MEDS: BISOPROLOL FUMARATE 5 MG TAB PO SCH (08:48)
[2018-01-29] MEDS: CALCIUM CARBONATE 500 MG CHEWABLE TAB PO SCH ×3 (08:48→22:52)
[2018-01-29] MEDS: INSULIN LISPRO 100 UNIT/ML SC SCH ×3 (08:52→17:06)
--- NOTE | 2018-01-29 16:21 | HOSPPROG ---
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 , * status post trans metatarsal amputation and Achilles tendon release 01/16 * MRSA, group a strep, Alcaligenes * acute renal failure requiring dialysis, suspect ATN * acute volume overload likely due to combination of his renal failure and IV fluids and antibiotics * Resolve systolic cardiac function * I would not diagnose this as diastolic heart failure at this time, but volume overload from other causes * acute blood loss anemia * diabetes mellitus * Quite a bit of fluctuation of blood sugars but overall in reasonable range here in hospital * vitamin-D deficiency, newly identified * Oral replacement * PTSD, chronic and stable * recent C difficile infection, has not recurred here during this admission, did receive some prophylactic therapy here PLANS: * Continue 3 times weekly dialysis for now * It appears we may be able to get him set up with outpatient dialysis from [facility] starting at 4 days from now, will follow * Wound care, foot elevation * Follow sugars closely * Continue vitamin-D replacement * DVT prophylaxis with heparin, will not use mechanical device on his right leg due to his wound and infection Ongoing monitoring of multiple systemic issues with ongoing high risk of further complications SUBJECTIVE: Feels okay, denies any pain at foot, no nausea eating well No respiratory symptom OBJECTIVE Vitals reviewed: Stable without fever Exam: alert oriented skin warm dry color ok resps not labored lungs clear BSs heart regular abd soft nondistended nontender, bowel sounds present limbs right foot is in bandages with no signs of bleeding or drainage; edema of both legs persist at this time iv site ok Laboratory data: Creatinine up a bit at 4.3 Sugars electrolytes stable Hemoglobin stable at 7.3 normal white blood cell count Objective: Vital Signs Temp Pulse Resp BP Pulse Ox 37.4 C 61 16 150/74 H 94 01/29/18 15:55 01/29/18 15:55 01/29/18 15:55 01/29/18 15:55 01/29/18 15:55 Laboratory Results 01/29/18 04:22 01/29/18 04:22 01/28/18 01/29/18 01/30/18 06:59 06:59 06:59 Intake Total 1396 1142 Output Total 125 4070 Balance 1271 -2928 PT 15.5 SEC (12.0-15.0) H 09/15/18 13:10 INR 1.21 (0.83-1.16) H 01/22/18 13:10 ICD10 Worksheet Patient Problems: Problems Problem Status Onset Diabetic infection of right foot Acute
--- NOTE | 2018-01-29 17:07 | ASMTCMCOM ---
CM Note CM Note Notes: Faxed labs and dialysis info sheets to [facility] in [place] P) [phone] F) [phone]. Per previous note, [facility] stated they would not be able to accomodate pt until Wednesday, hospitalist notified, JONATHON w/f DC Plan: [facility] + [facility] ([place]) Dialysis Date Signed: 01/29/2018 05:03 PM Electronically Signed By:Jelly Hernandez RN
--- NOTE | 2018-01-29 19:41 | SOAPPROG ---
SOAP Progress Note Assessment/Plan: Assessment/Plan: DIANNE: Cr was 1.2 on presentation, developed oliguric DIANNE in setting of low urine sodium, hematuria and pyuria. 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 - HD done 01/23, 01/24, 01/26, and 01/28. -Tunneled dialysis catheter placed on 01/28 * Next HD planned for 01/31 - Expect renal recovery and to come off HD at some time, but for now pt is still oliguric and dialysis dependent. - Will continue to monitor for renal recovery. - Avoid hypotension and nephrotoxins. *Will need to start working on possible outpatient dialysis plans starting on Wednesday Anemia: s/p biopsy Hgb down to 6.9 on 01/28. Transfused 1 unit PRBCs today on HD on 01/28 --> 7.3. Anuric so not having gross hematuria and no report of increased abdominal pain. CTM Hypervolemia: will modulate with fluid removal on HD. WHITNEY: Phos improving with HD, not yet on phos binder, will continue to monitor. HTN: BP ok on current meds, will continue to monitor. 01/29/18 20:04 Subjective: Feels great. No shortness of breath. Still not making any urine. Had HD yesterday. Tunneled dialysis catheter placed yesterday. On C. diff precautions but patient denies having much diarrhea. Objective: Vital Signs Temp Pulse Resp BP Pulse Ox 37.7 C 70 18 122/65 H 85 L 01/29/18 19:27 01/29/18 19:27 01/29/18 19:27 01/29/18 19:27 01/29/18 19:27 Laboratory Results 01/29/18 04:22 01/29/18 04:22 01/28/18 01/29/18 01/30/18 05:59 05:59 05:59 Intake Total 1746 1142 600 Output Total 125 4070 Balance 1621 -2928 600 PT 15.5 SEC (12.0-15.0) H 01/22/18 13:10 INR 1.21 (0.83-1.16) H 01/22/18 13:10 General: alert and oriented, no acute distress Eyes: EOMI, pERRL OP: MMM, no gross oral lesions CV: RRR Resp: nonlabored respirations on NC Abd: Soft, NT Ext: +2-3 edema BLE Neuro; CN II-XII grossly intact Access: RIJ tunneled dialysis catheter ICD10 Worksheet Patient Problems: Problems Problem Status Onset Diabetic infection of right foot Acute
[2018-01-29] MEDS: INSULIN GLARGINE 100 UNITS/ML UNIT SC SCH (22:52)
[2018-01-30] MEDS: HEPARIN 5,000 UNIT/0.5 ML INJ SC SCH ×3 (00:27→16:21)
[2018-01-30] MEDS: traMADol 50 MG TAB PO PRN (01:39)
[2018-01-30 05:00] LABS: PLATELET COUNT 236 10^3/uL (150-400)
[2018-01-30] MEDS: INSULIN LISPRO 100 UNIT/ML SC SCH ×3 (07:31→16:39)
[2018-01-30] MEDS: BISOPROLOL FUMARATE 5 MG TAB PO SCH (09:19)
[2018-01-30] MEDS: CHOLECALCIFEROL VIT D3 1,000 UNITS TAB PO SCH (09:19)
[2018-01-30] MEDS: CALCIUM CARBONATE 500 MG CHEWABLE TAB PO SCH ×3 (09:19→21:25)
--- NOTE | 2018-01-30 11:10 | HOSPPROG ---
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 * Still requiring dialysis for metabolic and volume issues * acute volume overload likely due to combination of his renal failure and IV fluids and antibiotics * Unknown systolic cardiac function * I would not diagnose this as diastolic heart failure at this time, should have further cardiac assessment * acute hypoxemic respiratory failure due to above * Remains on oxygen but decreased to 2 L today * acute blood loss anemia * diabetes mellitus * Quite a bit of fluctuation of blood sugars with some lows to 60s, was low this morning * vitamin-D deficiency, newly identified * Oral replacement * PTSD, chronic and stable * recent C difficile infection, has not recurred here during this admission, did receive some prophylactic therapy here while on antibiotics PLANS: * Continue 3 times weekly dialysis for now, next session tomorrow, needs ongoing volume removal * Will order echocardiogram * It appears we may be able to get him set up with outpatient dialysis from [facility] starting at 3 days from now, will follow with porter sample case * Wound care, foot elevation * Will decrease Lantus from 10-9 units, Follow sugars closely * Continue vitamin-D replacement * DVT prophylaxis with heparin, will not use mechanical device on his right leg due to his wound and infection Ongoing monitoring of multiple systemic issues with ongoing high risk of further complications SUBJECTIVE: Breathing feels okay, no chest pain Eating okay No pain in leg or foot OBJECTIVE Vitals reviewed: T-max 37.8 overnight; otherwise stable; oxygen down to 2 L Exam: alert oriented skin warm dry color ok resps not labored lungs clear BSs heart regular abd soft nondistended nontender, bowel sounds present limbs right foot is in bandages with no signs of bleeding or drainage; severe edema of both legs persists at this time iv site ok Laboratory data: Potassium slightly high at 5.3, normal CO2 and anion gap Sugar this morning 71 by chemistry Hemoglobin stable at 7.3 normal white blood cell count Objective: Vital Signs Temp Pulse Resp BP Pulse Ox 36.9 C 63 14 132/72 H 98 01/30/18 07:51 01/30/18 09:19 01/30/18 07:51 01/30/18 09:19 01/30/18 07:51 Laboratory Results 01/30/18 04:35 01/30/18 04:35 01/29/18 01/30/18 01/31/18 06:59 06:59 06:59 Intake Total 1142 900 Output Total 4070 Balance -2928 900 PT 15.5 SEC (12.0-15.0) H 01/22/18 13:10 INR 1.21 (0.83-1.16) H 01/22/18 13:10 - Time Spent With Patient Time Spent with Patient: greater than 35 minutes Time Spent with Patient: Greater than 35 minutes spent on this patients care, greater than 50% of time spent counseling, educating, and coordinating care regarding the above mentioned plan. ICD10 Worksheet Patient Problems: Problems Problem Status Onset Diabetic infection of right foot Acute
--- NOTE | 2018-01-30 13:15 | ASMTCMCOM ---
CM Note CM Note Notes: CM discussed patient case with RN, [facility] is requesting a TB results & PPD will be placed today. CM met with patient, shared we have talked with [facility] & they will work on scheduling on Wednesday & should have a chair available on for dialysis, this CM is not sure if [facility] will accept without PPD results. Discharge will be to [facility]. CM left patient with [facility] brochure and discussed CM support through Medicaid. CM to follow. Current Discharge Plan: date TBD to [facility]. Date Signed: 01/30/2018 01:14 PM Electronically Signed By:Kristal Alarcon
[2018-01-30] MEDS ORDERED: TUBERCULIN (PPD) 5 TU/0.1 ML SYRINGE ID ONE (14:00)
--- NOTE | 2018-01-30 16:29 | SOAPPROG ---
SOAP Progress Note Assessment/Plan: Assessment/Plan: DIANNE: Cr was 1.2 on presentation, developed oliguric DIANNE in setting of low urine sodium, hematuria and pyuria. 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 - HD done 01/23, 01/24, 01/26, and 01/28. -Tunneled dialysis catheter placed on 01/28 * Next HD planned for 01/31 - Expect renal recovery and to come off HD at some time, but for now pt is still oliguric and dialysis dependent. - Will continue to monitor for renal recovery. - Avoid hypotension and nephrotoxins. *Will need to start working on possible outpatient dialysis plans starting on Wednesday -nephrovite Anemia: s/p biopsy Hgb down to 6.9 on 01/28. Transfused 1 unit PRBCs today on HD on 01/28 --> 7.3. Anuric so not having gross hematuria and no report of increased abdominal pain. CTM *transfuse for Hgb <7 Hypervolemia: remains massively fluid overloaded. More short of breath on 01/30 *continue UF with HD *Plan for HD overnight on 01/30 with goal 4-5L UF as BP tolerates *1L fluid restriction *Would benefit from additional PUF sessions as schedule allows WHITNEY: Phos improving with HD, not yet on phos binder, will continue to monitor. HTN: BP ok on current meds, will continue to monitor. 01/30/18 16:28 01/30/18 16:29 Subjective: More short of breath, increased O2 requirement (still feels short of breath on 4L NC). Irritated that he can't have dialysis every day. Still no UOP Objective: Vital Signs Temp Pulse Resp BP Pulse Ox 36.8 C 59 L 12 139/81 H 97 01/30/18 15:29 01/30/18 15:29 01/30/18 15:29 01/30/18 15:29 01/30/18 15:29 Laboratory Results 01/30/18 04:35 01/30/18 04:35 01/29/18 01/30/18 01/31/18 05:59 05:59 05:59 Intake Total 1142 900 Output Total 4070 125 Balance -2928 900 -125 PT 15.5 SEC (12.0-15.0) H 01/22/18 13:10 INR 1.21 (0.83-1.16) H 01/22/18 13:10 General: alert and oriented, appears more short of breath, sitting up in chair leaning forward Eyes: EOMI, pERRL OP: MMM, O2 NC in place CV: RRR, no m/r/g Resp: nonlabored, decreased breath sounds at bases, more short of breath than yesterday. Abd: Soft, NT Ext: +3 edema BLE Neuro; CN II-XII grossly intact Access: RIJ tunneled dialysis catheter ICD10 Worksheet Patient Problems: Problems Problem Status Onset Diabetic infection of right foot Acute
[2018-01-30] MEDS: NEPHROVITE FOLIC ACID/VIT B&C 1 TAB PO SCH (16:40)
[2018-01-30] MEDS: INSULIN GLARGINE 100 UNITS/ML UNIT SC SCH (21:25)
[2018-01-31] MEDS: HEPARIN 5,000 UNIT/0.5 ML INJ SC SCH ×3 (02:21→17:46)
[2018-01-31] MEDS ORDERED: HEPARIN 50,000 UNIT/10 ML VIAL IV ONE (05:48)
[2018-01-31] MEDS: INSULIN LISPRO 100 UNIT/ML SC SCH ×4 (08:24→19:48)
[2018-01-31] MEDS: NEPHROVITE FOLIC ACID/VIT B&C 1 TAB PO SCH (08:27)
[2018-01-31] MEDS: CALCIUM CARBONATE 500 MG CHEWABLE TAB PO SCH ×3 (08:28→22:38)
[2018-01-31] MEDS: CHOLECALCIFEROL VIT D3 1,000 UNITS TAB PO SCH (08:28)
[2018-01-31] MEDS: BISOPROLOL FUMARATE 5 MG TAB PO SCH (08:29)
[2018-01-31] MEDS: traMADol 50 MG TAB PO PRN ×2 (10:55→17:46)
--- NOTE | 2018-01-31 13:36 | SOAPPROG ---
SOAP Progress Note Assessment/Plan: Assessment: DIANNE: Cr was 1.2 on presentation, developed oliguric DIANNE in setting of low urine sodium, hematuria and pyuria. 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 - HD done 01/23, 01/24, 01/26, 01/28, and late evening 01/30 -Tunneled dialysis catheter placed on 01/28 -HD again tomorrow 02/01 - Expect renal recovery and to come off HD at some time, but for now pt is still oliguric and dialysis dependent. *Will need to start working on possible outpatient dialysis plans starting on Wednesday- I spoke to CM today and paperwork faxed to [facility] and [facility]. PPD has been placed -nephrovite Anemia: s/p biopsy Hgb down to 6.9 on 01/28. Transfused 1 unit PRBCs on 01/28--- Hb stable 7.1. Anuric so not having gross hematuria and no report of increased abdominal pain. CTM *transfuse for Hgb <7 Hypervolemia: remains massively fluid overloaded. More short of breath on 01/30 and had extra HD as a result- better today *continue UF with HD *1L fluid restriction WHITNEY: Phos improving with HD,on 4.5. will continue to monitor. HTN: BP ok on current meds, will continue to monitor. I discussed with case management Nesha Cai MD [facility] pager [phone] 01/31/18 15:13 Subjective: Had HD last night. Denies sob but reports LE edema that is uncomfortable. No n/ v. Remains oliguric. Discussed outpt HD with him-- CM working on placement at both SNF and outpt unit, awaiting approval. Objective: Vital Signs Temp Pulse Resp BP Pulse Ox 36.6 C 62 16 120/70 96 01/31/18 12:00 01/31/18 12:00 01/31/18 12:00 01/31/18 12:00 01/31/18 12:00 Laboratory Results 01/31/18 04:27 01/31/18 04:27 01/30/18 01/31/18 02/01/18 05:59 05:59 05:59 Intake Total 900 418 Output Total 150 Balance 900 268 PT 15.5 SEC (12.0-15.0) H 01/22/18 13:10 INR 1.21 (0.83-1.16) H 01/22/18 13:10 Physical Exam - Physical Exam General Appearance: alert, no apparent distress, other (chronically ill, sitting in chair, not tachypneic) EENT: other (mmm) Neck: supple (IJ cath) Respiratory: lungs clear Cardiac/Chest: regular rate, rhythm, other (no rub) Abdomen: normal bowel sounds, non-tender, soft Extremities: other (++edema bilat LE) Neuro/Psych: alert, oriented x 3 ICD10 Worksheet Patient Problems: Problems Problem Status Onset Diabetic infection of right foot Acute
--- NOTE | 2018-01-31 15:06 | ASMTCMCOM ---
CM Note CM Note Notes: CM sent referral over to [facility] and spoke to Nimo there (P#: [phone], F#: [phone]). Awaiting results from TB to send over. CM sent updates to [facility] and updated them that pt will need dialysis MWF, most likely. CM spoke to Dr. Daksha Kearney from nephrology. CM to follow. Plan: [facility] Date Signed: 01/31/2018 03:05 PM Electronically Signed By:EARL Casillas
--- NOTE | 2018-01-31 15:54 | HOSPPROG ---
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 * Still requiring dialysis for metabolic and volume issues; was dialyzed last night and this morning and will go again tomorrow * acute volume overload likely due to combination of his renal failure and IV fluids and antibiotics * Unknown systolic cardiac function * I would not diagnose this as diastolic heart failure at this time, should have further cardiac assessment * acute hypoxemic respiratory failure due to above * Remains on oxygen * acute blood loss anemia * diabetes mellitus * Blood sugars evening out much better with insulin changes * vitamin-D deficiency, newly identified * Oral replacement * PTSD, chronic and stable * recent C difficile infection, has not recurred here during this admission, did receive some prophylactic therapy here while on antibiotics PLANS: * Continue 3 times weekly dialysis for now, with extra sessions as needed * Echocardiogram ordered * Nephrology in case management or working on setting up outpatient dialysis through care home facility, may be able to do that this week (PPD placed January 30 for this issue needs read February 01) * Wound care, foot elevation * Continue vitamin-D replacement * DVT prophylaxis with heparin, will not use mechanical device on his right leg due to his wound and infection Ongoing monitoring of multiple systemic issues with ongoing high risk of further complications SUBJECTIVE: Denies pain, nausea, fever symptoms, dyspnea Notes ongoing swelling OBJECTIVE Vitals reviewed: No recurrence of temperature elevation from the day before, vitals overall stable Exam: alert oriented skin warm dry color ok resps not labored lungs clear BSs heart regular abd soft nondistended nontender, bowel sounds present limbs right foot is in bandages with no signs of bleeding or drainage; severe edema of both legs persists at this time iv site ok Laboratory data: Still sodium and potassium normal Creatinine at 3 Acid-base good Sugars in good range with no lows or significant high eyes Hemoglobin stable at 7 Objective: Vital Signs Temp Pulse Resp BP Pulse Ox 37.1 C 61 16 120/70 96 01/31/18 15:31 01/31/18 15:31 01/31/18 15:31 01/31/18 15:31 01/31/18 15:31 Laboratory Results 01/31/18 04:27 01/31/18 04:27 01/30/18 01/31/18 02/01/18 06:59 06:59 06:59 Intake Total 900 418 Output Total 150 Balance 900 268 PT 15.5 SEC (12.0-15.0) H 01/22/18 13:10 INR 1.21 (0.83-1.16) H 01/22/18 13:10 - Time Spent With Patient Time Spent with Patient: greater than 35 minutes Time Spent with Patient: Greater than 35 minutes spent on this patients care, greater than 50% of time spent counseling, educating, and coordinating care regarding the above mentioned plan. ICD10 Worksheet Patient Problems: Problems Problem Status Onset Diabetic infection of right foot Acute
--- NOTE | 2018-01-31 20:32 | SOAPPROG ---
SOAP Progress Note Assessment/Plan: Assessment/Plan: 57-year-old man status post right transmetatarsal amputation with Achilles release. Admission complicated by renal failure and ATN requiring dialysis. S/p tunneled dialysis cath placement R TMA wound CDI, sutures intact. Will consider removing stitches later this week prior to DC. Change outer silver dressing PRN Worsening peripheral edema and calf tenderness - on review has not had US since admission. B US r/o DVT. 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 O: sitting up in chair, no acute distress, comfortable, answering questions appropriately No increased work of breathing R dialysis cath CDI, R neck suture intact R TMA site slightly macerated, no wound dehiscence. No evidence of surrounding erythema. Tense edema bilateral LE, woody 01/31/18 20:36 Objective: Vital Signs Temp Pulse Resp BP Pulse Ox 37.1 C 61 16 120/70 96 01/31/18 15:31 01/31/18 15:31 01/31/18 15:31 01/31/18 15:31 01/31/18 15:31 Laboratory Results 01/31/18 04:27 01/31/18 04:27 01/30/18 01/31/18 02/01/18 05:59 05:59 05:59 Intake Total 900 418 460 Output Total 150 Balance 900 268 460 PT 15.5 SEC (12.0-15.0) H 01/22/18 13:10 INR 1.21 (0.83-1.16) H 01/22/18 13:10 ICD10 Worksheet Patient Problems: Problems Problem Status Onset Diabetic infection of right foot Acute
[2018-01-31] MEDS: INSULIN GLARGINE 100 UNITS/ML UNIT SC SCH (22:38)
[2018-02-01] MEDS: HEPARIN 5,000 UNIT/0.5 ML INJ SC SCH ×3 (02:15→18:21)
[2018-02-01] MEDS: INSULIN LISPRO 100 UNIT/ML SC SCH ×3 (08:16→18:17)
--- NOTE | 2018-02-01 10:25 | SOAPPROG ---
SOAP Progress Note Assessment/Plan: Assessment: 1. DIANNE Oliguric DIANNE due to Co infectious GN. This should recover, but he will be dialysis dependent for some time. Working on different DC options. 2. Foot wound/MRSA infection Being followed by surgery. This is improved 3. Psychosocial Pt has barriers to coping. I tried to provide comfort. 4. Volume overload He would benefit from additional UF. Tentative PUF tomorrow. Subjective: Doing fair. Stable on dialysis Objective: Vital Signs Temp Pulse Resp BP Pulse Ox 37.4 C 66 16 150/85 H 93 02/01/18 07:39 02/01/18 07:39 02/01/18 07:39 02/01/18 07:39 02/01/18 07:39 Laboratory Results 01/31/18 04:27 02/01/18 05:15 01/31/18 02/01/18 02/02/18 05:59 05:59 05:59 Intake Total 418 610 300 Output Total 150 50 Balance 268 610 250 PT 15.5 SEC (12.0-15.0) H 01/22/18 13:10 INR 1.21 (0.83-1.16) H 01/22/18 13:10 Physical Exam - Physical Exam General Appearance: no apparent distress Neck: other (line site ok) Respiratory: lungs clear Cardiac/Chest: regular rate, rhythm Extremities: pedal edema Neuro/Psych: alert ICD10 Worksheet Patient Problems: Problems Problem Status Onset Diabetic infection of right foot Acute
[2018-02-01] MEDS ORDERED: EPOETIN ALFA 10,000 UNIT/ML VIAL SC SCH (10:30)
[2018-02-01] MEDS: CALCIUM CARBONATE 500 MG CHEWABLE TAB PO SCH ×3 (10:37→21:02)
[2018-02-01] MEDS: NEPHROVITE FOLIC ACID/VIT B&C 1 TAB PO SCH (10:38)
[2018-02-01] MEDS: BISOPROLOL FUMARATE 5 MG TAB PO SCH (10:38)
[2018-02-01] MEDS: CHOLECALCIFEROL VIT D3 1,000 UNITS TAB PO SCH ×2 (10:38→10:39)
--- NOTE | 2018-02-01 10:53 | ASMTCMCOM ---
CM Note CM Note Notes: Spoke with [facility] about patient's dialysis needs and they can take the patient for the [facility] dialysis schedule. We are currently awaiting the TB results to forward to [facility]. CM will follow. Date Signed: 02/01/2018 10:52 AM Electronically Signed By:Vi Cooper LCSW
--- NOTE | 2018-02-01 11:43 | WOCRNPDOC ---
WOCRN Advanced Assessment Note - Skin Integrity Problem, Advanced Assess Bilateral Lower Leg Dressing Type: Open to Air Skin Integrity Problem Comment: Wound care consulted to measure patient's bilateral lower legs for spandigrips by Rosalia YO. Left calf measured 45cm, right calf measured 47cm. Size G Spandigrips given to Barney OLIVER for light compression. Wound care will sign off. Please reconsult prn.
--- NOTE | 2018-02-01 11:51 | HOSPPROG ---
Hospitalist Progress Note Assessment/Plan: Peri Londono is a 57 y/o male w diabetes who presented to the ER with a foot infection. 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 -reviewed his care w Dr Ha; Peri should recover but will need dialysis for a long period of time -to get fluid removal tomorrow, getting dialysis today -oliguric * acute volume overload likely due to combination of his renal failure and IV fluids and antibiotics -has significant swelling to his bilateral lower extremities (ultrasound negative for a dvt) * acute hypoxemic respiratory failure due to above -on O2 * acute blood loss anemia -will follow * diabetes mellitus -glucoses are stable * vitamin-D deficiency, newly identified -Oral replacemen * PTSD, chronic -has a very flat affect and shows little interaction with myself and Dr Ha * recent C difficile infection, has not recurred here during this admission -received prophylactic therapy here while on antibiotics *plan: dialysis today and then fluid removal tomorrow. Plan is for him to go to [facility]. He is seen at the [facility] clinic and they closely monitor him. Subjective: Peri has no complaints, wants to know when he can eat. Objective: Vital Signs Temp Pulse Resp BP Pulse Ox 37.2 C 62 16 146/71 H 93 02/01/18 11:07 02/01/18 11:07 02/01/18 11:07 02/01/18 11:07 02/01/18 11:07 Laboratory Results 01/31/18 04:27 02/01/18 05:15 01/31/18 02/01/18 02/02/18 05:59 05:59 05:59 Intake Total 418 610 300 Output Total 150 50 Balance 268 610 250 PT 15.5 SEC (12.0-15.0) H 01/22/18 13:10 INR 1.21 (0.83-1.16) H 01/22/18 13:10 - Physical Exam Constitutional: appears nourished, chronically ill appearing, uncomfortable Ears, Nose, Mouth, Throat: hearing normal Cardiovascular: regular rate and rhythym, edema (bilateral lower extremity) Respiratory: no respiratory distress Skin: warm Neurologic: AAOx3 Psychiatric: flat affect ICD10 Worksheet Patient Problems: Problems Problem Status Onset Diabetic infection of right foot Acute
[2018-02-01] MEDS ORDERED: HEPARIN 50,000 UNIT/10 ML VIAL ONE (13:30)
--- NOTE | 2018-02-01 16:40 | ECHO ---
[email or web address] [address] [address] Main: [phone] Fax: Transthoracic Echocardiogram Name: ALEKSANDRA DELVALLE MR#: [id number] Study Date: 02/01/2018 Study Time: 11:55 AM Date of : 1960 Age: 57 year(s) Height: 172.7 cm (68 in.) Weight: 109.77 kg (242 lb.) BSA: 2.22 m2 Gender: Male Examination: Echo Indication: Anasarca, Diastolic murmur, Rt toes amputation, C-diff, R/O Cardiac Contribution Image Quality: Contrast: Requested by: Lalo Springer BP: / Heart Rate: Rhythm: Indication: Anasarca, Diastolic murmur, Rt toes amputation, C-diff, R/O Cardiac Contribution Procedure Staff Feather Mixer: Mark Mata RDCS Reading Physician: Cameron Pillai MD Requesting Provider: Conclusions: Normal size left ventricle. Mild concentric LV hypertrophy. EF is 65 %. No regional wall motion abnormality. Diastolic dysfunction is present. . Flattened interventricular septum consistent with right ventricular pressure and/or volume overload free wall. Mild mitral valve leaflet calcification is present. There is no significant mitral valve regurgitation. Minimal aortic cusp calcification is noted. There is no aortic valve regurgitation. Mild tricuspid regurgitation is present. Estimated PA systolic pressure is 67 mmHg. No pericardial effusion. No prior study for comparison. Measurements: Chambers Valvular Assessment AV/MV Valvular Assessment TV/PV Normal Normal Normal Name Value Range Name Value Range Name Value Range Ao Harriet (MM): 3.6 cm (2.2 cm-3.7 AV Vmax: 1.41 m/s (1 m/s-1.7 TR Vmax: 3.94 mm/s ( - ) cm) m/s) TR PGmax: 62 mmHg ( - ) IVSd (2D): 1.0 cm (0.6 cm-1.1 AV maxP mmHg ( - ) syst. PAP: 67 mmHg ( - ) cm) LVOT Vmax: 0.79 m/s (0.7 m/s-1.1 PV Vmax: 1.24 m/s (0.6 m/s-0.9 LVDd (2D): 5.7 cm (4.2 cm-5.9 m/s) m/s) cm) MV E Vmax: 1.06 m/s ( - ) PV PGmax: 6 mmHg ( - ) LVDs (2D): 3.6 cm (2.1 cm-4 MV A Vmax: 0.76 m/s ( - ) cm) MV E/A: 1.39 ( - ) Patient: ALEKSANDRA DELVALLE Study Date: 02/01/2018 Page 1 of 2 11:55 AM LVPWd (2D): 1.0 cm (0.6 cm-1 cm) LVEF (2D): 65 (>=54 %) Continued Measurements: Chambers Valvular Assessment AV/MV Valvular Assessment TV/PV Name Value Name Value Name Value LADs Lon.4 cm MV E' Septal: 0.06 m/s CVP (est.): 5 mmHg LA Area: 19.4 cm2 MV E/E' Septal: 16.70 LA Volume: 59 ml MV E/E' Lateral: 23.10 LA Volume Index: 26.6 ml/m2 Findings: Left Ventricle: Normal size left ventricle. Mild concentric LV hypertrophy. Normal global systolic LV function. EF is 65 %. No regional wall motion abnormality. Diastolic dysfunction is present. . Right Ventricle: Normal size right ventricle. Normal RV function. Flattened interventricular septum consistent with right ventricular pressure and/or volume overload free wall. Left Atrium: The left atrium is normal in size. Right Atrium: The right atrium is normal in size. Mitral Valve: Mild mitral valve leaflet calcification is present. There is no significant mitral valve regurgitation. Aortic Valve: Minimal aortic cusp calcification is noted. There is no aortic valve regurgitation. Tricuspid Valve: Mild tricuspid regurgitation is present. The pulmonary artery pressure is moderately increased. Pulmonic Valve: The pulmonic valve is normal in appearance and function. Aorta: The aorta is normal. Pericardium: No pericardial effusion. (No Signature Object) Patient: ALEKSANDRA DELVALLE Study Date: 02/01/2018 Page 2 of 2 11:55 AM [id number]
[2018-02-01] MEDS: INSULIN GLARGINE 100 UNITS/ML UNIT SC SCH (21:02)
[2018-02-02] MEDS: HEPARIN 5,000 UNIT/0.5 ML INJ SC SCH ×3 (01:05→17:59)
[2018-02-02] MEDS: INSULIN LISPRO 100 UNIT/ML SC SCH ×3 (07:37→18:12)
[2018-02-02] MEDS: NEPHROVITE FOLIC ACID/VIT B&C 1 TAB PO SCH (08:39)
[2018-02-02] MEDS: BISOPROLOL FUMARATE 5 MG TAB PO SCH (08:39)
[2018-02-02] MEDS: CALCIUM CARBONATE 500 MG CHEWABLE TAB PO SCH ×3 (08:40→21:22)
--- NOTE | 2018-02-02 09:18 | SOAPPROG ---
SOAP Progress Note Assessment/Plan: Assessment: DIANNE due to infectious GN infected foot wound (MRSA) volume overload, daily dialysis for now to get vol off and help promote wound healing psycho social issues addressed with the patient Plan: HD with vol removal today and tomorrow continue wound care etc... looking for better intermediate and usp options for his care continue to follow lytes/vol and renal function, suspect renal function will eventually recover, but will take some time 02/02/18 09:13 Subjective: up to chair slept OK appetite good, no nausea or vomiting breathing overall better no chest pain understands he continues to require renal replacement therapy Objective: Vital Signs Temp Pulse Resp BP Pulse Ox 37.2 C 65 18 145/74 H 94 02/02/18 07:54 02/02/18 08:39 02/02/18 07:54 02/02/18 08:39 02/02/18 04:00 Laboratory Results 01/31/18 04:27 02/01/18 05:15 02/01/18 02/02/18 02/03/18 05:59 05:59 05:59 Intake Total 610 1300 Output Total 50 Balance 610 1250 PT 15.5 SEC (12.0-15.0) H 01/22/18 13:10 INR 1.21 (0.83-1.16) H 01/22/18 13:10 Physical Exam - Physical Exam General Appearance: alert, obese Neck: normal inspection Respiratory: other (occasional rales in bases), No respiratory distress, No wheezing Cardiac/Chest: regular rate, rhythm, edema, No friction rub Abdomen: normal bowel sounds, non-tender, other (obese) Extremities: other (right transmet amputation) Neuro/Psych: alert, oriented x 3 ICD10 Worksheet Patient Problems: Problems Problem Status Onset Diabetic infection of right foot Acute
--- NOTE | 2018-02-02 12:17 | HOSPPROG ---
Hospitalist Progress Note Assessment/Plan: Peri Londono is a 57 y/o male w diabetes who presented to the ER with a foot infection. 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 -dialysis tomorrow -oliguric * acute volume overload likely due to combination of his renal failure and IV fluids and antibiotics -has significant swelling to his bilateral lower extremities (ultrasound negative for a dvt) -to get fluid removal today * acute hypoxemic respiratory failure due to above -on O2 * acute blood loss anemia -will follow * diabetes mellitus -glucoses are stable * vitamin-D deficiency, newly identified -Oral replacement * PTSD, chronic -became upset today while PT was instructing him on using the cane -continued support * recent C difficile infection, has not recurred here during this admission -received prophylactic therapy here while on antibiotics *plan: reviewed his care w Dr Lees, he needs more time in the hospital to get the fluid off idalia in his lower extremities. Also, noticed on left foot and reddened toe, spoke w Margaret agudelo surgery and she will come by and see it. Subjective: Peri has no c/o pain, more frustrated about ambulating. Objective: Vital Signs Temp Pulse Resp BP Pulse Ox 37.0 C 61 14 115/62 96 02/02/18 11:25 02/02/18 11:25 02/02/18 11:25 02/02/18 11:25 02/02/18 11:25 Laboratory Results 01/31/18 04:27 02/01/18 05:15 02/01/18 02/02/18 02/03/18 05:59 05:59 05:59 Intake Total 610 1300 Output Total 50 Balance 610 1250 PT 15.5 SEC (12.0-15.0) H 01/22/18 13:10 INR 1.21 (0.83-1.16) H 01/22/18 13:10 - Physical Exam Constitutional: chronically ill appearing Ears, Nose, Mouth, Throat: hearing normal Cardiovascular: edema (lower abdomen down his legs) Respiratory: no respiratory distress Skin: warm, other (left second toe w redness and some swelling) Musculoskeletal: generalized weakness Neurologic: AAOx3 Psychiatric: agitated ICD10 Worksheet Patient Problems: Problems Problem Status Onset Diabetic infection of right foot Acute
--- NOTE | 2018-02-02 16:23 | ASMTCMCOM ---
CM Note CM Note Notes: Discussed case in Complex Care rounds today: Continue to anticipate discharge to [facility] when medically stable. Referral was made to [facility] to [facility] the [facility] Medicaid Application for SNF placement. Discussed case with 3E CM. CM will follow. Date Signed: 02/02/2018 04:22 PM Electronically Signed By:Delia Bloom RN
[2018-02-02] MEDS ORDERED: HEPARIN 50,000 UNIT/10 ML VIAL ONE (17:37)
[2018-02-02] MEDS: INSULIN GLARGINE 100 UNITS/ML UNIT SC SCH (21:23)
[2018-02-03] MEDS: HEPARIN 5,000 UNIT/0.5 ML INJ SC SCH ×3 (01:38→17:27)
[2018-02-03] MEDS: INSULIN LISPRO 100 UNIT/ML SC SCH ×3 (08:24→16:56)
[2018-02-03] MEDS: BISOPROLOL FUMARATE 5 MG TAB PO SCH ×2 (08:46→11:38)
[2018-02-03] MEDS: NEPHROVITE FOLIC ACID/VIT B&C 1 TAB PO SCH (08:46)
[2018-02-03] MEDS: CALCIUM CARBONATE 500 MG CHEWABLE TAB PO SCH ×2 (08:46→17:27)
[2018-02-03] MEDS: CHOLECALCIFEROL VIT D3 1,000 UNITS TAB PO SCH (08:46)
--- NOTE | 2018-02-03 11:41 | HOSPPROG ---
Hospitalist Progress Note Assessment/Plan: Peri Londono is a 57 y/o male w diabetes who presented to the ER with a foot infection. 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 -dialysis today -oliguric * acute volume overload likely due to combination of his renal failure and IV fluids and antibiotics -has significant swelling to his bilateral lower extremities (ultrasound negative for a dvt) -significantly better today * acute hypoxemic respiratory failure due to above -on O2 but much improved * acute blood loss anemia -will follow -on epo * diabetes mellitus -glucoses are stable * vitamin-D deficiency, newly identified -Oral replacement * PTSD, chronic - -continued support * recent C difficile infection, has not recurred here during this admission -received prophylactic therapy here while on antibiotics *plan: reviewed his care w nephrology, he will get weekly labs and f/u with them. Subjective: Peri has no complaints, wants to sleep Objective: Vital Signs Temp Pulse Resp BP Pulse Ox 37.2 C 67 18 134/66 H 98 02/03/18 07:26 02/03/18 11:38 02/03/18 07:26 02/03/18 11:38 02/03/18 07:26 Laboratory Results 01/31/18 04:27 02/01/18 05:15 02/02/18 02/03/18 02/04/18 05:59 05:59 05:59 Intake Total 1300 400 Output Total 50 150 Balance 1250 250 PT 15.5 SEC (12.0-15.0) H 01/22/18 13:10 INR 1.21 (0.83-1.16) H 01/22/18 13:10 - Physical Exam Constitutional: chronically ill appearing, obese Ears, Nose, Mouth, Throat: hearing normal Respiratory: no respiratory distress Skin: warm Neurologic: AAOx3 Psychiatric: interacting appropriately, flat affect ICD10 Worksheet Patient Problems: Problems Problem Status Onset Diabetic infection of right foot Acute
[2018-02-03] MEDS ORDERED: HEPARIN 50,000 UNIT/10 ML VIAL ONE (11:50)
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
--- NOTE | 2018-02-03 12:30 | SOAPPROG ---
SOAP Progress Note Assessment/Plan: Assessment: DIANNE due to infectious GN infected foot wound (MRSA) volume overload, daily dialysis for now to get vol off and help promote wound healing, tolerated 4L removed today counseled regarding fluid restriction psycho social issues addressed with the patient Will be having outpatient HD at [facility] with Dr. Singleton Will be going to [facility] for antibiotics wound care etc... Plan: HD with vol removal today tolerated 4L removed continue wound care etc... 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 Going to [facility] with outpatient HD continue to follow lytes/vol and renal function, suspect renal function will eventually recover, but will take some time. all questions answered to his satisfaction 02/02/18 09:13 02/03/18 12:25 Subjective: feeling better energy improving SOB improved no cp nausea vomiting or anorexia spirits good, he even laughed at 2 of my jokes Objective: Vital Signs Temp Pulse Resp BP Pulse Ox 37.5 C 72 18 140/69 H 92 02/03/18 11:51 02/03/18 11:51 02/03/18 11:51 02/03/18 11:51 02/03/18 11:51 Laboratory Results 01/31/18 04:27 02/01/18 05:15 02/02/18 02/03/18 02/04/18 05:59 05:59 05:59 Intake Total 1300 400 Output Total 50 150 Balance 1250 250 PT 15.5 SEC (12.0-15.0) H 01/22/18 13:10 INR 1.21 (0.83-1.16) H 01/22/18 13:10 Physical Exam - Physical Exam General Appearance: alert, no apparent distress Neck: normal inspection Respiratory: No rhonchi, No wheezing Cardiac/Chest: regular rate, rhythm, edema, systolic murmur, No gallop Abdomen: normal bowel sounds, non-tender, soft Skin: warm/dry Extremities: swelling (edema improved) Neuro/Psych: alert, normal mood/affect, oriented x 3 ICD10 Worksheet Patient Problems: Problems Problem Status Onset Diabetic infection of right foot Acute
--- NOTE | 2018-02-03 12:42 | PDIAF ---
- Diagnosis Diagnosis: acute diabetic foot infection, acute renal failure, PTSD Code Status: Full Code - Medication Management Discharge Medications: Medications to Continue on Transfer Bisoprolol Fumarate [Zebeta (*)] 10 mg PO DAILY 12/25/17 [Last Taken Unknown] Aspirin [Aspirin 81mg (*)] 81 mg PO DAILY 01/14/18 [Last Taken 01/14/18] Insulin Lispro [Humalog] 1 - 6 unit SQ TIDMEAL 01/14/18 [Last Taken Unknown] Insulin Detemir [Levemir] 10 unit SQ HS 01/17/18 [Last Taken Unknown] Simvastatin [Zocor] 10 mg PO DAILY 01/17/18 [Last Taken Unknown] Calcium Carbonate [Tums 500MG (*)] 1,000 mg PO TID tab.chew 02/03/18 [Last Taken Unknown] Cholecalciferol Vit D3 [Vitamin D3 (*)] 1,000 units PO DAILY tab 02/03/18 [ Last Taken Unknown] Epoetin Thaddeus [Procrit 44614 UNIT/ML (*)] 10,000 unit SC Q7D vial 02/03/18 [ Last Taken Unknown] Folic Acid/Vit B Com W/C [Nephro-Jocelyn Rx] 1 each PO DAILY tab 02/03/18 [Last Taken Unknown] traMADol [Ultram 50 mg (*)] 50 mg PO Q6HRS PRN tab 02/03/18 [Last Taken Unknown ] Discharge Medications: Refer to the Discharge Home Medication list for PRN reason. PICC Care - Routine: N/A - Orders Services needed: Physical Therapy, Occupational Therapy Isolation Type: CDIFF Isolation, Contact Isolation Diet Recommendation: ADA 2000 consistent carb, fluid restriction (use comment for amount), other (fluid restrict of 1000 ml fluid daily) Weigh Patient: daily Activity/Weight Bearing Restrictions: wbat Equipment: prefers using a cane - Labs/Radiology BMP Date: 02/09/18 (weekly) CBC w/diff Date: 02/09/18 (weekly) Call or Fax Lab and Imaging Results to: to Dr Grayson agudelo nephrology - Follow Up Care Current Providers and Referrals: NONE *PRIMARY CARE P,. [Primary Care Provider] - As per Instructions Gian Singleton DO [Doctor of Osteopathy] -
--- NOTE | 2018-02-03 12:59 | PDIAF ---
- Diagnosis Diagnosis: acute diabetic foot infection, acute renal failure, PTSD Code Status: Full Code - Medication Management Discharge Medications: Medications to Continue on Transfer Bisoprolol Fumarate [Zebeta (*)] 10 mg PO DAILY 12/25/17 [Last Taken Unknown] Aspirin [Aspirin 81mg (*)] 81 mg PO DAILY 01/14/18 [Last Taken 01/14/18] Insulin Lispro [Humalog] 1 - 6 unit SQ TIDMEAL 01/14/18 [Last Taken Unknown] Insulin Detemir [Levemir] 10 unit SQ HS 01/17/18 [Last Taken Unknown] Simvastatin [Zocor] 10 mg PO DAILY 01/17/18 [Last Taken Unknown] Calcium Carbonate [Tums 500MG (*)] 1,000 mg PO TID tab.chew 02/03/18 [Last Taken Unknown] Cholecalciferol Vit D3 [Vitamin D3 (*)] 1,000 units PO DAILY tab 02/03/18 [ Last Taken Unknown] Epoetin Thaddeus [Procrit 65237 UNIT/ML (*)] 10,000 unit SC Q7D vial 02/03/18 [ Last Taken Unknown] Folic Acid/Vit B Com W/C [Nephro-Jocelyn Rx] 1 each PO DAILY tab 02/03/18 [Last Taken Unknown] traMADol [Ultram 50 mg (*)] 50 mg PO Q6HRS PRN tab 02/03/18 [Last Taken Unknown ] Discharge Medications: Refer to the Discharge Home Medication list for PRN reason. PICC Care - Routine: N/A - Orders Services needed: Physical Therapy, Occupational Therapy Isolation Type: CDIFF Isolation, Contact Isolation Diet Recommendation: ADA 2000 consistent carb, fluid restriction (use comment for amount), other (fluid restrict of 1000 ml fluid daily) Weigh Patient: daily Activity/Weight Bearing Restrictions: wbat Equipment: prefers using a cane Additional Instructions: Wear boot when walking on right Can leave on silver dressing on foot Do not get foot wet - Labs/Radiology BMP Date: 02/09/18 (weekly) CBC w/diff Date: 02/09/18 (weekly) Call or Fax Lab and Imaging Results to: to Dr Grayson agudelo nephrology - Follow Up Care Current Providers and Referrals: Adenike Jacinot MD [Medical Doctor] - follow up in 1 week Gian Singleton DO [Doctor of Osteopathy] - NONE *PRIMARY CARE P,. [Primary Care Provider] - As per Instructions
--- NOTE | 2018-02-03 13:13 | GDS ---
DISCHARGE DIAGNOSES: 1. Acute diabetic foot infection in the right foot with associated osteomyelitis. 2. Acute renal failure requiring dialysis. 3. Acute volume overload secondary to his renal failure and receiving IV fluids. 4. Acute hypoxemic respiratory failure due to the above. 5. Acute blood-loss anemia. 6. Diabetes. 7. Vitamin D deficiency. 8. Posttraumatic stress disorder that is chronic. 9. Recent Clostridium difficile infection. This has not recurred during this admission. Received prophylactic treatment. CONSULTATIONS: 1. Dr. Wes Krishnan. 2. Dr. Adenike Jacinto. 3. Dr. Ramesh Egan. 4. Dr. Ha. HISTORY OF PRESENT ILLNESS: The patient is a 57-year-old gentleman with a past medical history significant for diabetes. He was initially admitted to [facility] on January 14, with evidence of worsening right diabetic foot ulcer. He was seen and evaluated by the surgical team and had a right TMA and Achilles release. He had a wound VAC in place and slowly improved during his stay. During his stay, he developed acute renal failure. The patient did not receive any contrast or new nephrotoxin. It was noted that his acute kidney injury was secondary from ATN and infection related glomerulonephritis. He will need dialysis for a period of time with the hopes of his kidneys recovering. In addition, he developed significant edema in his lower extremity and that extended up into his abdomen. This is markedly improved. He has had fluid removal along with dialysis throughout his stay. It was also noted that he has significant vitamin D deficiency. This is newly identified; will need further followup in regard to this. HOSPITAL COURSE PER PROBLEM: 1. Acute diabetic foot infection with chronic open wounds leading to osteomyelitis. He is status post transmetatarsal amputation and Achilles tendon release on January 16. He grew out MRSA group A strep and alcaligenes. His margins are clear. He completed full treatment. 2. Acute renal failure. He has required dialysis during his stay. He is oliguric. His biopsy showed ATN and infection-related glomerulonephritis. His renal failure should improve over time. 3. Acute volume overload, markedly better. 4. Acute hypoxemic respiratory failure. He has improved, now on 1-2 liters of oxygen. 5. Acute blood-loss anemia. He will get blood as required during dialysis. He is also on Epogen. 6. Diabetes mellitus. Resumed his home regimen. 7. Vitamin D replacement. This is newly identified. He is on oral replacement. 8. Chronic PTSD, overall stable. 9. Recent Clostridium C difficile infection. This did not recur during this admission. He received prophylactic therapy while on antibiotics. DISCHARGE CONDITION: Stable. Blood pressure is 140/69, heart rate is 72, respiratory rate of 18, O2 sats on 1.5 L is 92%. Temperature is 37.5 Celsius. MEDICATIONS AT DISCHARGE: Please see the EMR. DISCHARGE INSTRUCTIONS: 1. He will get dialysis 3 times a week. He will be at [facility] and transferred to [facility]. 2. Weekly labs. 3. If he develops fever, chills, chest pain, shortness of breath, return to the ER. 4. Follow up with Dr Jacinto in one week. 5. Check a Vitamin D level in 6 weeks. Greater than 30 minutes discharging and coordinating the patient's care. Copy requested to: Dr. Leland Egan /[id number]/MODL MTDD
[2018-02-03 14:42] VITALS: BP 130/57
--- NOTE | 2018-02-03 16:17 | ASMTCMCOM ---
CM Note CM Note Notes: Spoke w/[employer], pt able to discharge today. [phone] notify her that pt was discharging to [facility] and will be getting Dialysis at [facility] in [place]. CM called and left a message for Nimo at [facility] that pt is discharging and will likely need dialysis on Wednesday. Discussed with pt who is agreeable to plan. Date Signed: 02/03/2018 03:29 PM Electronically Signed By:Jelly Hernandez RN
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
--- NOTE | 2018-02-10 04:10 | GOP ---
DATE OF OPERATION: 01/28/2018 SURGEON: Adenike Jacinto MD ANESTHESIA: Dr. Bobo Beltran/general. PREOPERATIVE DIAGNOSIS: Renal insufficiency. POSTOPERATIVE DIAGNOSIS: Renal insufficiency. PROCEDURE PERFORMED: Right internal jugular tunneled dialysis catheter placement. FINDINGS: SPECIMENS: None. ESTIMATED BLOOD LOSS: 100 cc. INDICATIONS: The patient is a 57-year-old man who has renal insufficiency and has been requiring marleny lysis. He has a temporary dialysis catheter and will need a tunneled dialysis catheter for discharge . DESCRIPTION OF PROCEDURE: Patient was in the operating room. His bilateral neck and chest were prep ped and draped in the usual sterile fashion. He had a temporary catheter in his right neck. I threa ded a wire through this and removed the catheter. I held pressure to avoid large amounts of blood lo ss. I created a pocket to accommodate the tunneled dialysis catheter in the right chest. I tunneled this up to the insertion site. I placed the dilator over the wire and removed the dilator. I then placed a sheath over the wire and removed the wire. I threaded the catheter through the sheath and p eeled away the sheath. Placement was confirmed with fluoroscopy. Each of the ports withdrew blood e asily and were flushed. The catheter was sewn into place. The incision at the neck was sutured. Dr awng applied. He tolerated the procedure well. He was awakened in the operating room, extubated, transferred to PACU in stable condition. /[id number]/MODL
== END 2018-02-03 18:13 | DRG 314 ==
LOC: EEVIPCON 16:29 → F3E 20:05
PROVIDERS: ADMIT Family Medicine; ATTEND Family Medicine
PROC: 0Y6T0Z0 Detachment at Right 3rd Toe, Complete, Open Approach (ICD-10-PCS; principal; 2018-01-16 11:00)
PROC: 0LNS0ZZ Release Right Ankle Tendon, Open Approach (ICD-10-PCS; principal; 2018-01-16 11:00)
PROC: 02HV33Z Insertion of Infusion Device into Superior Vena Cava, Percutaneous Approach (ICD-10-PCS; 2018-01-18)
PROC: 02HV33Z Insertion of Infusion Device into Superior Vena Cava, Percutaneous Approach (ICD-10-PCS; 2018-01-22)
PROC: 30233N1 Transfusion of Nonautologous Red Blood Cells into Peripheral Vein, Percutaneous Approach (ICD-10-PCS; 2018-01-24)
PROC: 5A1D70Z Performance of Urinary Filtration, Intermittent, Less than 6 Hours Per Day (ICD-10-PCS; 2018-01-24)
PROC: 0TB03ZX Excision of Right Kidney, Percutaneous Approach, Diagnostic (ICD-10-PCS; 2018-01-26)
PROC: 02HV33Z Insertion of Infusion Device into Superior Vena Cava, Percutaneous Approach (ICD-10-PCS; 2018-01-28)
DX: E11.622 Type 2 diabetes mellitus with other skin ulcer (principal); N17.0 Acute kidney failure with tubular necrosis; J96.01 Acute respiratory failure with hypoxia; M86.171 Other acute osteomyelitis, right ankle and foot; E87.79 Other fluid overload; D62 Acute posthemorrhagic anemia; N00.9 Acute nephritic syndrome with unspecified morphologic changes; E11.621 Type 2 diabetes mellitus with foot ulcer; E55.9 Vitamin D deficiency, unspecified; F43.10 Post-traumatic stress disorder, unspecified; Z88.0 Allergy status to penicillin; Z59.0 Homelessness
CPT/HCPCS: 82607-90; 83516-90; 83520-90; 86334-90; 86705-90; 88305-90; 88313-90; 88346-90; 88348-90; 97110-GP; 97116-GP; 97162-GP; 97166-GO; 97530-GO; 97530-GP; 97535-GO; A9585; C1750; C1751; G0472; J0610; J0885; J1335; J1642; J1644; J1650; J1815; J2250; J2310; J2370; J2704; J2997; J3010; J3370; P9016; P9040